=== PATIENT | female | born 1955 | race Caucasian/White ===

== ENCOUNTER → 2016-10-01 | Outpatient (CLI) | payer BC ==
[2016-10-01 09:08] LABS: Potassium 4.7 mmol/L (3.5-5.1)
== END | disposition home or self-care (01) ==
LOC: LABWHC1 08:21
PROVIDERS: ATTEND Internal Medicine
DX: E11.9 Type 2 diabetes mellitus without complications (principal); I10 Essential (primary) hypertension
CPT/HCPCS: 36415; 80051; 82565; 83036; 84520

== ENCOUNTER → 2016-10-17 | Outpatient (CLI) | payer BC ==
[2016-10-17 08:35] LABS: Basophils % (A) 1 %; CH 31.5; CHCM 32.3; Eosinophils # (A) 0.1 k/uL (0-0.7); Eosinophils % (A) 3 %; HCT 38.8 % (34.0-46.0); HDW 2.47; HGB 12.7 gm/dL (11.4-16.0); Luc # (Auto) 0.07; Luc % (Auto) 2; Lymphocytes # (A) 1.3 k/uL (1.0-4.8); Lymphocytes % (A) 30 %; MCH 31.9 pg (25.0-35.0); MCHC 32.6 g/dL (31.0-37.0); Mean Platelet Volume 7.3; Monocytes # (A) 0.3 k/uL (0-1.0); Monocytes % (A) 6 %; Neutrophils # (A) 2.6 k/uL (1.3-7.7); Neutrophils % (A) 59 %; RBC 3.96 m/uL (3.80-5.40); RDW 12.4 % (11.5-15.5); WBC 4.4 k/uL (3.8-10.6); WBC (Perox) 4.68
[2016-10-17 10:53] LABS: Magnesium 1.9 mg/dL (1.6-2.3); Phosphorous 3.6 mg/dL (2.5-4.5); Potassium 5.1 mmol/L (3.5-5.1)
== END ==
LOC: LABWHC1 07:42
PROVIDERS: ATTEND Nurse Practitioner Family
DX: N18.3 Chronic kidney disease, stage 3 (moderate) (principal); D50.9 Iron deficiency anemia, unspecified; D64.9 Anemia, unspecified; E55.9 Vitamin D deficiency, unspecified; E21.3 Hyperparathyroidism, unspecified; M10.9 Gout, unspecified; N39.0 Urinary tract infection, site not specified
CPT/HCPCS: 36415; 80048; 82306; 82728; 83540; 83550; 83735; 83970; 84100; 84550; 85025

== ENCOUNTER → 2016-12-31 | Outpatient (CLI) | payer BC ==
[2016-12-31 09:31] LABS: Calcium 9.9 mg/dL (8.4-10.2); Potassium 4.7 mmol/L (3.5-5.1)
== END | disposition home or self-care (01) ==
LOC: LABWHC1 07:58
PROVIDERS: ATTEND Nurse Practitioner Family
DX: N18.3 Chronic kidney disease, stage 3 (moderate) (principal)
CPT/HCPCS: 36415; 80048

== ENCOUNTER → 2017-03-25 | Outpatient (CLI) | payer BC ==
[2017-03-25 07:58] LABS: Basophils # (A) 0.1 k/uL (0-0.2); Basophils % (A) 1 %; CH 31.8; Eosinophils # (A) 0.3 k/uL (0-0.7); Eosinophils % (A) 6 %; HCT 39.6 % (34.0-46.0); HDW 2.53; HGB 13.5 gm/dL (11.4-16.0); Luc # (Auto) 0.07; Luc % (Auto) 1; Lymphocytes # (A) 1.6 k/uL (1.0-4.8); Lymphocytes % (A) 29 %; MCH 32.8 pg (25.0-35.0); MCV 96.6 fL (80.0-100.0); Mean Platelet Volume 8.2; Monocytes # (A) 0.3 k/uL (0-1.0); Monocytes % (A) 5 %; Neutrophils # (A) 3.2 k/uL (1.3-7.7); Neutrophils % (A) 58 %; RDW 12.8 % (11.5-15.5); WBC 5.5 k/uL (3.8-10.6); WBC (Perox) 5.56
[2017-03-25 07:59] LABS: Appearance,Urine Clear (Clear); Bilirubin,Urine Negative (Negative); Glucose,Urine (UA) Negative (Negative); Ketones,Urine Negative (Negative); Leukocyte Esterase,Urine Small (Negative); Nitrite,Urine Negative (Negative); Particle Count 497; Protein,Urine Negative (Negative); Specific Gravity,Urine 1.003 (1.001-1.035); UA Billing (MACRO vs. MICRO) MICRO; Urobilinogen,Urine <2.0 mg/dL (<2.0); WBC,Urine 1 /hpf (0-5)
[2017-03-25 11:23] LABS: Calcium 9.9 mg/dL (8.4-10.2); Magnesium 1.7 mg/dL (1.6-2.3); Phosphorous 4.1 mg/dL (2.5-4.5); Potassium 4.5 mmol/L (3.5-5.1); Uric Acid 5.5 mg/dL (3.7-7.4)
[2017-03-25 11:50] LABS: Iron Saturation 35.45 (12.00-45.00)
== END | disposition home or self-care (01) ==
LOC: LABWHC1 06:54
PROVIDERS: ATTEND Nurse Practitioner Family
DX: N18.3 Chronic kidney disease, stage 3 (moderate) (principal); D50.9 Iron deficiency anemia, unspecified; E55.9 Vitamin D deficiency, unspecified; E21.3 Hyperparathyroidism, unspecified; M10.9 Gout, unspecified; N39.0 Urinary tract infection, site not specified
CPT/HCPCS: 36415; 80048; 81001; 82306; 82728; 83540; 83550; 83735; 83970; 84100; 84550; 85025

== ENCOUNTER → 2017-08-06 | Outpatient (CLI) | payer BC ==
[2017-08-06 13:42] LABS: Basophils # (A) 0.1 k/uL (0-0.2); Basophils % (A) 1 %; Eosinophils # (A) 0.2 k/uL (0-0.7); Eosinophils % (A) 4 %; HCT 40.1 % (34.0-46.0); HGB 12.6 gm/dL (11.4-16.0); Lymphocytes # (A) 1.9 k/uL (1.0-4.8); Lymphocytes % (A) 28 %; MCH 31.1 pg (25.0-35.0); MCHC 31.5 g/dL (31.0-37.0); MCV 98.8 fL (80.0-100.0); Mean Platelet Volume 7.5; Monocytes # (A) 0.4 k/uL (0-1.0); Monocytes % (A) 6 %; Neutrophils % (A) 60 %; Platelet Count 196 k/uL (150-450); RBC 4.06 m/uL (3.80-5.40); RDW 12.6 % (11.5-15.5); WBC 6.7 k/uL (3.8-10.6)
[2017-08-06 13:55] LABS: Appearance,Urine Clear (Clear); Bacteria,Urine Rare /hpf; Bilirubin,Urine Negative (Negative); Blood,Urine Negative (Negative); Color,Urine Light Yellow; Glucose,Urine (UA) Negative (Negative); Hyaline Casts,Urine 1 /lpf (0-2); Ketones,Urine Negative (Negative); Leukocyte Esterase,Urine Large (Negative); Mucus,Urine Rare /hpf; Nitrite,Urine Negative (Negative); PH, Urine 5.5 (5.0-8.0); Protein,Urine Negative (Negative); RBC,Urine <1 /hpf (0-5); Specific Gravity,Urine 1.009 (1.001-1.035); Squamous Epithelial Cell,Urine 2 /hpf (0-4); Urobilinogen,Urine <2.0 mg/dL (<2.0); WBC,Urine 6 /hpf (0-5)
[2017-08-06 13:59] LABS: Calcium 9.8 mg/dL (8.4-10.2); Magnesium 1.7 mg/dL (1.6-2.3); Phosphorus 4.7 mg/dL (2.5-4.5); Potassium 5.1 mmol/L (3.5-5.1); Uric Acid 5.9 mg/dL (3.7-7.4)
[2017-08-06 19:09] LABS: Iron Saturation 24.73 (12.00-45.00)
[2017-08-06 19:19] LABS: Vitamin D 25 Hydroxy 20.2 ng/mL (30.0-100.0)
== END | disposition home or self-care (01) ==
LOC: LABWHC1 12:49
PROVIDERS: ATTEND Nurse Practitioner Family
DX: N39.0 Urinary tract infection, site not specified (principal); M10.9 Gout, unspecified; N25.81 Secondary hyperparathyroidism of renal origin; D50.9 Iron deficiency anemia, unspecified; N18.3 Chronic kidney disease, stage 3 (moderate)
CPT/HCPCS: 36415; 80048; 81001; 82306; 82728; 83540; 83550; 83735; 83970; 84100; 84550; 85025; 87086

== ENCOUNTER → 2017-09-04 | Outpatient (CLI) | payer BC | END | disposition home or self-care (01) | LOC: LABWHC1 08:43 | PROVIDERS: ATTEND Psychiatry & Neurology Psychiatry | DX: E55.9 Vitamin D deficiency, unspecified (principal) | CPT/HCPCS: 36415; 80175; 82306 ==

== ENCOUNTER → 2017-11-19 | Outpatient (CLI) | payer BC ==
[2017-11-19 08:07] LABS: Calcium 9.7 mg/dL (8.4-10.2); Potassium 4.9 mmol/L (3.5-5.1)
== END | disposition home or self-care (01) ==
LOC: LABWHC1 07:22
PROVIDERS: ATTEND Nurse Practitioner Family
DX: N18.3 Chronic kidney disease, stage 3 (moderate) (principal)
CPT/HCPCS: 36415; 80048

== ENCOUNTER → 2017-12-19 | Outpatient (CLI) | payer BC ==
[2017-12-19 09:46] LABS: HCT 41.3 % (34.0-46.0); HGB 13.3 gm/dL (11.4-16.0); MCH 31.1 pg (25.0-35.0); MCHC 32.2 g/dL (31.0-37.0); MCV 96.5 fL (80.0-100.0); Mean Platelet Volume 6.8; Platelet Count 165 k/uL (150-450); RBC 4.28 m/uL (3.80-5.40); RDW 13.3 % (11.5-15.5)
[2017-12-19 10:00] LABS: Albumin 4.4 g/dL (3.5-5.0); Calcium 9.7 mg/dL (8.4-10.2); Potassium 4.7 mmol/L (3.5-5.1); Total Bilirubin 0.6 mg/dL (0.2-1.3); Total Protein 6.6 g/dL (6.3-8.2)
== END | disposition home or self-care (01) ==
LOC: LABWHC1 09:06
PROVIDERS: ATTEND Psychiatry & Neurology Psychiatry
DX: I10 Essential (primary) hypertension (principal); E55.9 Vitamin D deficiency, unspecified; Z79.899 Other long term (current) drug therapy
CPT/HCPCS: 36415; 80053; 80061; 82306; 84443; 85027

== ENCOUNTER → 2018-08-06 | Outpatient (CLI) | payer MEDICARE ==
[2018-08-06 10:31] LABS: HCT 42.8 % (34.0-46.0); MCH 30.4 pg (25.0-35.0); MCHC 30.5 g/dL (31.0-37.0); MCV 99.7 fL (80.0-100.0); Mean Platelet Volume 6.7; Platelet Count 244 k/uL (150-450); RBC 4.29 m/uL (3.80-5.40); RDW 13.1 % (11.5-15.5); WBC 8.1 k/uL (3.8-10.6)
[2018-08-06 15:57] LABS: Albumin 4.3 g/dL (3.80-4.90); Albumin/Globulin Ratio 2.39 (1.20-2.10); Anion Gap 9.3 mmol/L (4.00-12.00); Calcium 9.4 mg/dL (8.7-10.3); Carbon Dioxide 22.7 mmol/L (21.6-31.8); Globulin 1.8 g/dL (1.6-3.3); Potassium 5.1 mmol/L (3.5-5.5); Total Bilirubin 0.4 mg/dL (0.2-1.2); Total Protein 6.1 g/dL (6.2-8.2)
[2018-08-06 16:03] LABS: T4, Free (Free Thyroxine) 1.1 ng/dL (0.80-1.80)
== END | disposition home or self-care (01) ==
LOC: LABWHC1 09:48
PROVIDERS: ATTEND Psychiatry & Neurology Psychiatry
DX: E55.9 Vitamin D deficiency, unspecified (principal); E03.9 Hypothyroidism, unspecified; E78.5 Hyperlipidemia, unspecified; Z79.899 Other long term (current) drug therapy
CPT/HCPCS: 36415; 80053; 84439; 84443; 85027

== ENCOUNTER → 2018-08-07 | Outpatient (CLI) | payer MEDICARE ==
[2018-08-07 11:53] LABS: LDL Cholesterol,Calculated 107.2 mg/dL (0.0-131.0); VLDL Calculation 18.8 mg/dL (5.00-40.00)
== END | disposition home or self-care (01) ==
LOC: LABWHC1 07:43
PROVIDERS: ATTEND Psychiatry & Neurology Psychiatry
DX: E55.9 Vitamin D deficiency, unspecified (principal); E03.9 Hypothyroidism, unspecified; E78.5 Hyperlipidemia, unspecified; Z79.899 Other long term (current) drug therapy
CPT/HCPCS: 36415; 80061

== ENCOUNTER → 2019-01-02 | Outpatient (CLI) | payer MEDICARE ==
--- NOTE | 2019-01-05 10:49 | MM ---
Reason for exam: screening (asymptomatic). Last mammogram was performed 2 years and 8 months ago. History: Patient is postmenopausal. Benign stereotactic core biopsy of the left breast, October 06, 2001. Benign excisional biopsy of the left breast. Physical Findings: A clinical breast exam by your physician is recommended on an annual basis and results should be correlated with mammographic findings. MG Screening Mammo w CAD Bilateral CC and MLO view(s) were taken. Prior study comparison: May 17, 2016, bilateral MG screening mammo w CAD. May 03, 2015, bilateral MG screening mammo w CAD. There are scattered fibroglandular densities. Benign appearing bilateral calcifications. Previous mammotome biopsy in the left breast. No significant changes when compared with prior studies. ASSESSMENT: Benign, BI-RAD 2 RECOMMENDATION: Routine screening mammogram of both breasts in 1 year.
== END | disposition home or self-care (01) ==
LOC: RADMAMWWP 07:00
PROVIDERS: ATTEND Family Medicine
DX: Z12.31 Encounter for screening mammogram for malignant neoplasm of breast (principal)
CPT/HCPCS: 77067

== ENCOUNTER → 2019-04-13 | Outpatient (CLI) | payer MEDICARE | END | disposition home or self-care (01) | LOC: LABWHC1 06:37 | PROVIDERS: ATTEND Psychiatry & Neurology Psychiatry | DX: E21.3 Hyperparathyroidism, unspecified (principal) | CPT/HCPCS: 36415; 82310; 83970 ==

== ENCOUNTER 2019-11-23 09:37 | Inpatient (IN) | payer MEDICARE ==
[2019-11-23] MEDS ORDERED: SODIUM CHLORIDE 0.9% 2,000 ML IV STA (10:12)
[2019-11-23] MEDS ORDERED: ONDANSETRON ODT 8 MG TAB.RAPDIS PO STA (10:12)
--- NOTE | 2019-11-23 10:22 | ED ---
General Adult HPI - General Chief complaint: Arrhythmia/Palpitations Stated complaint: racing heart Time Seen by Provider: 11/23/19 09:45 Source: patient, RN notes reviewed, old records reviewed Mode of arrival: ambulatory Limitations: no limitations - History of Present Illness Initial comments: This is a 64-year-old female who presents emergency Department complaining of nausea and vomiting is for 2 weeks. Patient states she doesn't vomit every day but she is nauseous all day. Patient states she's been unable to eat but she has been able to keep some fluids down. Patient states she's also had a little bit of diarrhea. Patient states her has the same thing. Patient states she has not taken her temperature. She has felt warm. Patient denies any chest pain difficulty breathing shortness of breath per patient denies any cough. Alvarado silverman states her abdomen is sore but there is no specific spot of pain per patient denies any lightheadedness or dizziness. Patient denies any headache patient denies numbness weakness. - Related Data Home Medications Medication Instructions Recorded Confirmed Cholecalciferol [Vitamin D3 (25 5,000 unit PO DAILY 11/23/19 11/23/19 Mcg = 1000 Iu)] Famotidine 40 mg PO BID 11/23/19 11/23/19 Ferrous Sulfate [Feosol] 325 mg PO DAILY 11/23/19 11/23/19 Haloperidol [Haldol] 1 mg PO DAILY 11/23/19 11/23/19 Omeprazole [PriLOSEC] 40 mg PO DAILY 11/23/19 11/23/19 amLODIPine [Norvasc] 2.5 mg PO DAILY 11/23/19 11/23/19 lamoTRIgine [LaMICtal] 200 mg PO DAILY 11/23/19 11/23/19 Allergies Allergy/AdvReac Type Severity Reaction Status Date / Time No Known Allergies Allergy Verified 11/23/19 11:54 Review of Systems ROS Statement: Those systems with pertinent positive or pertinent negative responses have been documented in the HPI. ROS Other: All systems not noted in ROS Statement are negative. Past Medical History Past Medical History: No Reported History History of Any Multi-Drug Resistant Organisms: None Reported Past Surgical History: Section Past Psychological History: Bipolar Smoking Status: Never smoker Past Alcohol Use History: None Reported Past Drug Use History: None Reported General Exam - General Exam Comments Initial Comments: GENERAL: Patient is well-developed and well-nourished. Patient is nontoxic and well- hydrated and is in mild distress. ENT: Neck is soft and supple. No significant lymphadenopathy is noted. Oropharynx is clear. Dry mucous membranes. Neck has full range of motion without eliciting any pain. EYES: The sclera were anicteric and conjunctiva were pink and moist. Extraocular movements were intact and pupils were equal round and reactive to light. Eyelids were unremarkable. PULMONARY: Unlabored respirations. Good breath sounds bilaterally. No audible rales rhonchi or wheezing was noted. CARDIOVASCULAR: Patient is tachycardic at 130 beats a minute patient also has an occasional extrasystole ABDOMEN: Soft and nontender with normal bowel sounds. SKIN: Skin is clear with no lesions or rashes and otherwise unremarkable. NEUROLOGIC: Patient is alert and oriented x3. Cranial nerves II through XII are grossly intact. Motor and sensory are also intact. Normal speech, volume and content. Symmetrical smile. MUSCULOSKELETAL: Normal extremities with adequate strength and full range of motion. LYMPHATICS: No significant lymphadenopathy is noted PSYCHIATRIC: Normal psychiatric evaluation. Limitations: no limitations Course Vital Signs 11/23/19 11/23/19 11/23/19 09:42 09:53 10:00 Temperature 99.6 F Pulse Rate 156 H 129 H Respiratory 17 16 Rate Blood Pressure 119/91 O2 Sat by Pulse 96 94 L 92 L Oximetry 11/23/19 11/23/19 11/23/19 10:30 10:44 11:00 Temperature Pulse Rate 130 H 126 H 120 H Respiratory 17 18 20 Rate Blood Pressure 128/90 120/90 128/90 O2 Sat by Pulse 94 L 93 L 98 Oximetry 11/23/19 11/23/19 11/23/19 11:30 12:21 12:33 Temperature Pulse Rate 116 H 120 H 111 H Respiratory 18 18 Rate Blood Pressure 153/109 140/103 O2 Sat by Pulse 97 Oximetry 11/23/19 11/23/19 13:08 13:39 Temperature 99.9 F H Pulse Rate 108 H 111 H Respiratory 16 18 Rate Blood Pressure 150/107 133/108 O2 Sat by Pulse 97 98 Oximetry Medical Decision Making - Medical Decision Making EKG shows sinus tachycardia with occasional PVC at 143 bpm NV interval is on a 46 dresses 80 QT interval 274 QTC is 422 per patient's EKG shows no ST segment elevation or depression. Patient received 1 g of Rocephin. Patient received 2 L of fluid in the emergency department was still tachycardic and remained mildly nauseated. So I spoke with Dr. Peck he agreed to admit the patient admitted the patient wrote admitting orders - Lab Data Result diagrams: 11/23/19 10:00 11/23/19 10:00 Lab Results 11/23/19 11/23/19 11/23/19 Range/Units 10:00 10:00 10:00 WBC 15.8 H (3.8-10.6) k/uL RBC 4.32 (3.80-5.40) m/uL Hgb 12.2 (11.4-16.0) gm/dL Hct 40.1 (34.0-46.0) % MCV 92.8 (80.0-100.0) fL MCH 28.3 (25.0-35.0) pg MCHC 30.5 L (31.0-37.0) g/dL RDW 14.1 (11.5-15.5) % Plt Count 324 (150-450) k/uL Neutrophils % 91 % Lymphocytes % 3 % Monocytes % 4 % Eosinophils % 1 % Basophils % 1 % Neutrophils # 14.4 H (1.3-7.7) k/uL Lymphocytes # 0.5 L (1.0-4.8) k/uL Monocytes # 0.6 (0-1.0) k/uL Eosinophils # 0.1 (0-0.7) k/uL Basophils # 0.1 (0-0.2) k/uL Hypochromasia Slight Sodium 141 (137-145) mmol/L Potassium 5.1 (3.5-5.1) mmol/L Chloride 107 (98-107) mmol/L Carbon Dioxide 21 L (22-30) mmol/L Anion Gap 13 mmol/L BUN 33 H (7-17) mg/dL Creatinine 1.55 H (0.52-1.04) mg/dL Est GFR (CKD-EPI)AfAm 40 (>60 ml/min/1.73 sqM) Est GFR (CKD-EPI)NonAf 35 (>60 ml/min/1.73 sqM) Glucose 149 H (74-99) mg/dL Plasma Lactic Acid [place] (0.7-2.0) mmol/L Calcium 9.1 (8.4-10.2) mg/dL Total Bilirubin 0.7 (0.2-1.3) mg/dL AST 57 H (14-36) U/L ALT 21 (4-34) U/L Alkaline Phosphatase 94 (38-126) U/L Troponin I 0.014 (0.000-0.034) ng/mL Total Protein 6.9 (6.3-8.2) g/dL Albumin 3.4 L (3.5-5.0) g/dL Amylase 65 (30-110) U/L Lipase 135 (23-300) U/L Urine Color Urine Appearance (Clear) Urine pH (5.0-8.0) Ur Specific [place] (1.001-1.035) Urine Protein (Negative) Urine Glucose (UA) (Negative) Urine Ketones (Negative) Urine Blood (Negative) Urine Nitrite (Negative) Urine Bilirubin (Negative) Urine Urobilinogen (<2.0) mg/dL Ur Leukocyte Esterase (Negative) Urine RBC (0-5) /hpf Urine WBC (0-5) /hpf Ur Squamous Epith Cells (0-4) /hpf Urine Bacteria (None) /hpf Urine Mucus (None) /hpf 11/23/19 11/23/19 Range/Units 10:37 11:20 WBC (3.8-10.6) k/uL RBC (3.80-5.40) m/uL Hgb (11.4-16.0) gm/dL Hct (34.0-46.0) % MCV (80.0-100.0) fL MCH (25.0-35.0) pg MCHC (31.0-37.0) g/dL RDW (11.5-15.5) % Plt Count (150-450) k/uL Neutrophils % % Lymphocytes % % Monocytes % % Eosinophils % % Basophils % % Neutrophils # (1.3-7.7) k/uL Lymphocytes # (1.0-4.8) k/uL Monocytes # (0-1.0) k/uL Eosinophils # (0-0.7) k/uL Basophils # (0-0.2) k/uL Hypochromasia Sodium (137-145) mmol/L Potassium (3.5-5.1) mmol/L Chloride (98-107) mmol/L Carbon Dioxide (22-30) mmol/L Anion Gap mmol/L BUN (7-17) mg/dL Creatinine (0.52-1.04) mg/dL Est GFR (CKD-EPI)AfAm (>60 ml/min/1.73 sqM) Est GFR (CKD-EPI)NonAf (>60 ml/min/1.73 sqM) Glucose (74-99) mg/dL Plasma Lactic Acid [place] 1.1 (0.7-2.0) mmol/L Calcium (8.4-10.2) mg/dL Total Bilirubin (0.2-1.3) mg/dL AST (14-36) U/L ALT (4-34) U/L Alkaline Phosphatase (38-126) U/L Troponin I (0.000-0.034) ng/mL Total Protein (6.3-8.2) g/dL Albumin (3.5-5.0) g/dL Amylase (30-110) U/L Lipase (23-300) U/L Urine Color Yellow Urine Appearance Cloudy H (Clear) Urine pH 5.5 (5.0-8.0) Ur Specific [place] 1.011 (1.001-1.035) Urine Protein 1+ H (Negative) Urine Glucose (UA) Negative (Negative) Urine Ketones Negative (Negative) Urine Blood Negative (Negative) Urine Nitrite Negative (Negative) Urine Bilirubin Negative (Negative) Urine Urobilinogen <2.0 (<2.0) mg/dL Ur Leukocyte Esterase Moderate H (Negative) Urine RBC 2 (0-5) /hpf Urine WBC 20 H (0-5) /hpf Ur Squamous Epith Cells 23 H (0-4) /hpf Urine Bacteria Many H (None) /hpf Urine Mucus Rare H (None) /hpf Disposition Clinical Impression: Urinary tract infection, Tachycardia, Dehydration, Vomiting Disposition: ADMITTED IP TO THIS [facility] Referrals: Reuben Chino MD [Primary Care Provider] - 1-2 days Time of Disposition: 14:20
[2019-11-23] MEDS ORDERED: ONDANSETRON 4 MG/2 ML VIAL IVP STA (10:39)
[2019-11-23 10:40] LABS: Basophils # (A) 0.1 k/uL (0-0.2); Basophils % (A) 1 %; Eosinophils # (A) 0.1 k/uL (0-0.7); Eosinophils % (A) 1 %; HCT 40.1 % (34.0-46.0); HGB 12.2 gm/dL (11.4-16.0); Hypochromasia Slight; Lymphocytes # (A) 0.5 k/uL (1.0-4.8); Lymphocytes % (A) 3 %; MCH 28.3 pg (25.0-35.0); MCHC 30.5 g/dL (31.0-37.0); MCV 92.8 fL (80.0-100.0); Mean Platelet Volume 7.5; Monocytes # (A) 0.6 k/uL (0-1.0); Monocytes % (A) 4 %; Neutrophils # (A) 14.4 k/uL (1.3-7.7); Neutrophils % (A) 91 %; Platelet Count 324 k/uL (150-450); RBC 4.32 m/uL (3.80-5.40); RDW 14.1 % (11.5-15.5); WBC 15.8 k/uL (3.8-10.6)
[2019-11-23 11:08] LABS: Albumin 3.4 g/dL (3.5-5.0); Calcium 9.1 mg/dL (8.4-10.2); Total Bilirubin 0.7 mg/dL (0.2-1.3); Total Protein 6.9 g/dL (6.3-8.2)
[2019-11-23 11:12] LABS: Potassium 5.1 mmol/L (3.5-5.1)
--- NOTE | 2019-11-23 11:13 | XR ---
EXAMINATION TYPE: XR chest 2V DATE OF EXAM: 11/23/2019 COMPARISON: NONE HISTORY: Tachycardia, vomiting, shortness of breath, and fever. TECHNIQUE: Frontal and lateral views of the chest are obtained. FINDINGS: Low lung volumes are present. Overlying EKG leads are seen. There is no focal air space opa city, pleural effusion, or pneumothorax seen. The cardiac silhouette size is within normal limits wi th atherosclerotic change aortic knob. The osseous structures are intact. IMPRESSION: Low lung volumes without suspicious acute process.
[2019-11-23 11:47] LABS: Appearance,Urine Cloudy (Clear); Bacteria,Urine Many /hpf; Bilirubin,Urine Negative (Negative); Blood,Urine Negative (Negative); Color,Urine Yellow; Glucose,Urine (UA) Negative (Negative); Ketones,Urine Negative (Negative); Leukocyte Esterase,Urine Moderate (Negative); Mucus,Urine Rare /hpf; Nitrite,Urine Negative (Negative); PH, Urine 5.5 (5.0-8.0); Protein,Urine 1+ (Negative); RBC,Urine 2 /hpf (0-5); Specific Gravity,Urine 1.011 (1.001-1.035); Squamous Epithelial Cell,Urine 23 /hpf (0-4); Urobilinogen,Urine <2.0 mg/dL (<2.0); WBC,Urine 20 /hpf (0-5)
[2019-11-23] MEDS ORDERED: lamoTRIgine 100 MG TAB PO STA (12:01)
[2019-11-23] MEDS ORDERED: amLODIPine 5 MG TAB PO STA (12:01)
[2019-11-23] MEDS ORDERED: cefTRIAXone IN SWFI 1,000 MG/10 ML SYRINGE IVP STA (12:39)
[2019-11-23] MEDS ORDERED: hydrALAZINE HCL 20 MG/ML 1 ML VIAL IVP STA (13:45)
[2019-11-23] MEDS ORDERED: ACETAMINOPHEN TAB 325 MG TAB PO STA (13:45)
[2019-11-23] MEDS ORDERED: SODIUM CHLORIDE 0.9% 1,000 ML IV ONE (14:28)
--- NOTE | 2019-11-23 16:50 | P.HPIM ---
History of Present Illness H&P Date: 11/23/19 Chief Complaint: Nausea vomiting diarrhea History of presenting complaint: This is a pleasant 64-year-old patient of Dr. Reuben Chino. Chronic stable medical conditions include bipolar, hypertension, GERD. Patient's present to the ER with 2 weeks of nausea vomiting not able to keep anything down some diarrhea abdominal pain. Denies any fever and chills. Tired rundown. Patient appears to be rather distant during the history giving. Not been able to eat much. ER physician related at all from time she says she is fine though she'll often have other contradictory complaints. She was able to eat only a very small amount in the ER the last if she ate she said yes. Review of systems: GEN.: Weak tired EYES: None HEENT: None NECK: None RESPIRATORY: None CARDIOVASCULAR: None GASTROINTESTINAL: As above GENITOURINARY: None MUSCULOSKELETAL: None LYMPHATICS: None HEMATOLOGICAL: None PSYCHIATRY: Appears depressed NEUROLOGICAL: None Past medical history to include: Bipolar, hypertension, GERD, Social history: Denies smoking or alcohol. Lives the hospital. Family history: Reviewed, noncontributory to presentation Physical examination: VITAL SIGNS: 99.6, 156, 17, 119/91, 96% on room air GENERAL: BMI 35.3, laying in bed, tired appearing flat affect. EYES: Pupils equal. Conjunctiva normal. HEENT: External appearance of nose and ears normal, oral cavity-dry. NECK: JVD not raised; masses not palpable. HEART: First and second heart sounds are normal; no edema. LUNGS: Respiratory rate normal; clear to auscultation. ABDOMEN: Soft, mild tenderness, liver spleen not palpable, no masses palpable. PSYCH: Does answer questions but has a rather distant affectl. NEUROLOGICAL: Cranial nerves grossly intact; no facial asymmetry, power and sensation grossly intact. LYMPHATICS: No lymph nodes palpable in the axilla and neck INVESTIGATIONS, reviewed in the clinical context: White count 13.8 hemoglobin 12.2 platelets 324 potassium 5.1 bun 33 creatinine 1.55 UA positive for leukoesterase, squamous epithelial cells-23 EKG tracing personally reviewed by me-sinus rhythm with VC Chest x-ray film personally reviewed by me-no obvious infiltrate, some elevation of the right diaphragm Assessment: -Patient presents with over 10 days of nausea vomiting abdominal pain some loose stools. Had only one loose stool today. Appears to be acute gastroenteritis. Given the duration of symptoms will empirically treat with oral antibiotics. -Bipolar disorder patient clinically does appear to be elevated down and depressed -Essential hypertension -GERD Plan: Patient's stool will be sent off for ova and parasites. We'll start the patient on Flagyl 5 mg 3 times a day and ciprofloxacin 500 mg twice a day. Patient be placed on a liquid diet. Lovenox for DVT prophylaxis. Care was discussed with the patient. Psychiatry will be consulted. Past Medical History Past Medical History: No Reported History History of Any Multi-Drug Resistant Organisms: None Reported Past Surgical History: Section Past Psychological History: Bipolar Smoking Status: Never smoker Past Alcohol Use History: None Reported Past Drug Use History: None Reported Medications and Allergies Home Medications Medication Instructions Recorded Confirmed Type Cholecalciferol [Vitamin D3 (25 5,000 unit PO DAILY 11/23/19 11/23/19 History Mcg = 1000 Iu)] Famotidine 40 mg PO BID 11/23/19 11/23/19 History Ferrous Sulfate [Feosol] 325 mg PO DAILY 11/23/19 11/23/19 History Haloperidol [Haldol] 1 mg PO DAILY 11/23/19 11/23/19 History Omeprazole [PriLOSEC] 40 mg PO DAILY 11/23/19 11/23/19 History amLODIPine [Norvasc] 2.5 mg PO DAILY 11/23/19 11/23/19 History lamoTRIgine [LaMICtal] 200 mg PO DAILY 11/23/19 11/23/19 History Allergies Allergy/AdvReac Type Severity Reaction Status Date / Time No Known Allergies Allergy Verified 11/23/19 11:54 Physical Exam Vitals: Vital Signs Temp Pulse Resp BP Pulse Ox 11/23/19 16:20 106 H 18 115/77 100 11/23/19 15:40 112 H 18 130/90 98 11/23/19 14:14 120 H 18 138/75 98 11/23/19 13:39 99.9 F H 111 H 18 133/108 98 11/23/19 13:08 108 H 16 150/107 97 11/23/19 12:33 111 H 11/23/19 12:21 120 H 18 140/103 11/23/19 11:30 116 H 18 153/109 97 11/23/19 11:00 120 H 20 128/90 98 11/23/19 10:44 126 H 18 120/90 93 L 11/23/19 10:30 130 H 17 128/90 94 L 11/23/19 10:00 129 H 16 119/91 92 L 11/23/19 09:53 17 94 L 11/23/19 09:42 99.6 F 156 H 96 Intake and Output 11/23/19 11/23/19 11/23/19 06:59 14:59 22:59 Other: Weight 96.162 kg Results CBC & Chem 7: 11/23/19 10:00 11/23/19 10:00 Labs: Abnormal Lab Results - Last 24 Hours (Table) 11/23/19 11/23/19 11/23/19 Range/Units 10:00 10:00 11:20 WBC 15.8 H (3.8-10.6) k/uL MCHC 30.5 L (31.0-37.0) g/dL Neutrophils # 14.4 H (1.3-7.7) k/uL Lymphocytes # 0.5 L (1.0-4.8) k/uL Carbon Dioxide 21 L (22-30) mmol/L BUN 33 H (7-17) mg/dL Creatinine 1.55 H (0.52-1.04) mg/dL Glucose 149 H (74-99) mg/dL AST 57 H (14-36) U/L Albumin 3.4 L (3.5-5.0) g/dL Urine Appearance Cloudy H (Clear) Urine Protein 1+ H (Negative) Ur Leukocyte Esterase Moderate H (Negative) Urine WBC 20 H (0-5) /hpf Ur Squamous Epith Cells 23 H (0-4) /hpf Urine Bacteria Many H (None) /hpf Urine Mucus Rare H (None) /hpf Microbiology - Last 24 Hours (Table) 11/23/19 11:20 Urine Culture - Preliminary Urine,Voided
[2019-11-23] MEDS ORDERED: LEVOFLOXACIN 500 MG TAB PO SCH (17:00)
[2019-11-23] MEDS: metroNIDAZOLE 500 MG TAB PO SCH ×2 (17:25→20:43)
[2019-11-23] MEDS: LACTATED RINGERS 1,000 ML IV SCH (17:25)
[2019-11-23] MEDS: FAMOTIDINE 20 MG TAB PO SCH (20:43)
[2019-11-23] MEDS: HALOPERIDOL 1 MG TAB PO SCH (20:43)
[2019-11-24] MEDS: LACTATED RINGERS 1,000 ML IV SCH ×5 (01:14→20:33)
[2019-11-24 07:35] LABS: HCT 34.8 % (34.0-46.0); HGB 10.5 gm/dL (11.4-16.0); Hypochromasia Moderate; MCH 28.4 pg (25.0-35.0); MCHC 30.1 g/dL (31.0-37.0); MCV 94.4 fL (80.0-100.0); Mean Platelet Volume 7.2; Platelet Count 234 k/uL (150-450); RBC 3.69 m/uL (3.80-5.40); RDW 14.2 % (11.5-15.5); WBC 10.8 k/uL (3.8-10.6)
[2019-11-24] MEDS: lamoTRIgine 100 MG TAB PO SCH (07:52)
[2019-11-24] MEDS: PANTOPRAZOLE 40 MG TABLET PO SCH (07:52)
[2019-11-24] MEDS: metroNIDAZOLE 500 MG TAB PO SCH ×3 (07:52→20:33)
[2019-11-24] MEDS: amLODIPine 2.5 MG TAB PO SCH (07:52)
[2019-11-24 07:57] LABS: Calcium 8.5 mg/dL (8.4-10.2)
[2019-11-24 12:57] VITALS: BMI 35.2
--- NOTE | 2019-11-24 14:19 | P.CN ---
Psychiatric Consult - . Consult date: 11/24/19 Consult:: IDENTIFYING DATA: The patient is a 64-year-old female admitted to medicine service for the evaluation and treatment of nausea, vomiting, diarrhea and abdominal pain. The hospitalist submitted a psychiatry consult because she has history of a bipolar illness. HISTORY OF PRESENT ILLNESS: I reviewed the medical record and interviewed the patient. She stated she came the hospital because she was having difficulty "holding food down." She alleged that prior prior to admission she was only drinking fluids and "occasional" solid food. She stated she's been meeting with Dr. Zaragoza is an outpatient "for many years" and he has been prescribing her current psychotropic medications, Lamictal and Haldol, again "for many years". She denied current psychiatric problems or concerns. Specifically, she denied feeling depressed or having thoughts of or suicide. She denied experiencing persistent uncontrolled anxiety. She denied obsessions or compulsions. She denied use of alcohol or drugs including marijuana. She denied experiencing such psychotic symptoms as auditory, visual or olfactory hallucinations, ideas reference, thought insertion, thought broadcasting or thought control. I was unable to reach Dr. Zaragoza to review his treatment and treatment history. PAST PSYCHIATRIC HISTORY: She is vague about her history but admitted to 2 admissions to [facility] "over 20 years ago. She is unaware of her psychiatric diagnosis and became upset when I talked about her having a psychiatric illness. PAST MEDICAL HISTORY: See admission history and physical. ALLERGIES: NO KNOWN DRUG ALLERGIES. SUBSTANCE USE HISTORY: Denied. FAMILY PSYCHIATRIC/SUBSTANCE USE HISTORY: Denied. SOCIAL HISTORY: She lives happily with her of 50 years. They have 4 grown children and 15 grandchildren. He is retired. She never worked outside the household. MENTAL STATUS EXAM: She presented as a pale appearing moderately obese 64-year-old female who is laying In bed. She made eye contact and appeared to attend to the interview. Other than her pill complexion she had no distinguishing features or prominent physical abnormalities. She had a blunted facial expression. She was alert and oriented to person, place and time. She showed no psychomotor retardation and corneal for movements of the mouth. Her speech was spontaneous, blunted with decreased volume. Her affect was blunted but stable and appropriate. She denied suicidal ideation, wishes or homicidal ideation. She denied feeling hopeless, helpless or worthless. She did not express ideas reference, paranoid ideation, magical ideation or delusions. Her thinking was concrete but her associations were coherent, logical and goal directed. She showed poverty of speech and poverty of content of speech. She denied hallucinations and did not appear to be responding to internal stimuli.. IMPRESSIONS: She is a 64-year-old female who has a long history of a psychiatric illness for which she has been treated with combination mood stabilizer and antipsychotic. She is more prominent negative than positive symptoms of her illness negative symptoms include a decrease in affective expression, flattening of affect, and possible anhedonia. She plans to continue outpatient treatment with her psychiatrist. There is no indication for transfer to psychiatric unit a referral for higher level of outpatient psychiatric treatment. DIAGNOSIS: Schizoaffective disorder with good prognostic features PLAN: Continue current medications-Haldol 1 mg at bedtime and Lamictal 200 mg daily. There is no indication for transfer to psychiatric unit. Follow up with Dr. Zaragoza as an outpatient. Thank you for the consult. Psychiatry will sign off . 11/24/19 14:04
[2019-11-24] MEDS ORDERED: LEVOFLOXACIN 250 MG TAB PO SCH (17:00)
--- NOTE | 2019-11-24 20:26 | P.PN ---
Progress Note - Text Progress Note Date: 11/24/19 Chief Complaint: Nausea vomiting diarrhea History of presenting complaint: This is a pleasant 64-year-old patient of Dr. Reuben Chino. Chronic stable medical conditions include bipolar, hypertension, GERD. Patient's present to the ER with 2 weeks of nausea vomiting not able to keep anything down some diarrhea abdominal pain. Denies any fever and chills. Tired rundown. Patient appears to be rather distant during the history giving. Not been able to eat much. ER physician related at all from time she says she is fine though she'll often have other contradictory complaints. She was able to eat only a very small amount in the ER the last if she ate she said yes. Admitted with-acute gastroenteritis. Started on IV fluids and Flagyl and ciprofloxacin. Seen by psychiatry. Diagnosed with-schizoaffective disorder. Today-feeling a bit better. By lunchtime she was eating better. Seen by psychiatry. Diarrhea is decreasing no vomiting Review of systems: Was done for constitutional, cardiovascular, GI, pulmonary. relevant finding as above Active Medications Amlodipine Besylate (Norvasc) 2.5 mg PO DAILY [facility] Last Admin: 11/24/19 07:52 Dose: 2.5 mg Documented by: Famotidine (Pepcid) 40 mg PO HS [facility] Last Admin: 11/23/19 20:43 Dose: 40 mg Documented by: Haloperidol (Haldol) 1 mg PO HS [facility] Last Admin: 11/23/19 20:43 Dose: 1 mg Documented by: Ceftriaxone Sodium 1 gm/ (Sodium Chloride) 50 mls @ 100 mls/hr IVPB Q24HR [facility] Last Admin: 11/24/19 07:51 Dose: 100 mls/hr Documented by: Lactated Ringer's (Lactated Ringers) 1,000 mls @ 150 mls/hr IV .Q6H40M [facility] Last Admin: 11/24/19 19:37 Dose: Not Given Documented by: Lamotrigine (Lamictal) 200 mg PO DAILY [facility] Last Admin: 11/24/19 07:52 Dose: 200 mg Documented by: Levofloxacin (Levaquin) 250 mg PO Q24H [facility] Last Admin: 11/24/19 16:43 Dose: 250 mg Documented by: Metronidazole (Flagyl) 500 mg PO TID [facility] Last Admin: 11/24/19 16:43 Dose: 500 mg Documented by: Pantoprazole Sodium (Protonix) 40 mg PO AC-BRKFST [facility] Last Admin: 11/24/19 07:52 Dose: 40 mg Documented by: Physical examination: VITAL SIGNS: 98.5, 105, 18, 141/91, Farrah 4% room air GENERAL: BMI 35.3, laying in bed, slightly more perky EYES: Pupils equal. Conjunctiva normal. HEENT: External appearance of nose and ears normal, oral cavity-dry. NECK: JVD not raised; masses not palpable. HEART: First and second heart sounds are normal; no edema. LUNGS: Respiratory rate normal; clear to auscultation. ABDOMEN: Soft, minimal tenderness, liver spleen not palpable, no masses palpable. PSYCH: Answering questions better INVESTIGATIONS, reviewed in the clinical context: White count 10.8 hemoglobin 10.5 potassium 4 bun 24 creatinine 1.32 bicarb 20 Previous testing White count 13.8 hemoglobin 12.2 platelets 324 potassium 5.1 bun 33 creatinine 1.55 UA positive for leukoesterase, squamous epithelial cells-23 EKG tracing personally reviewed by me-sinus rhythm with VC Chest x-ray film personally reviewed by me-no obvious infiltrate, some elevation of the right diaphragm Assessment: -Patient presents with over 10 days of nausea vomiting abdominal pain some loose stools. Had only one loose stool today. Appears to be acute gastroenteritis. Given the duration of symptoms will empirically treat with oral antibiotics. -Schizoaffective disorder -Essential hypertension -GERD -Acute kidney injury likely prerenal Plan: Encourage oral intake. Continue oral antibiotic. IV fluids to continue. Repeat labs in the morning. Encouraged to be out of bed.
[2019-11-24] MEDS: FAMOTIDINE 20 MG TAB PO SCH (20:33)
[2019-11-24] MEDS: HALOPERIDOL 1 MG TAB PO SCH (20:33)
[2019-11-25] MEDS: LACTATED RINGERS 1,000 ML IV SCH ×2 (03:30→12:53)
[2019-11-25 07:08] LABS: Calcium 8.7 mg/dL (8.4-10.2); Potassium 4.2 mmol/L (3.5-5.1)
[2019-11-25 08:16] VITALS: BP 138/94; PULSE 105; RESP 18; TEMP 97.9
[2019-11-25] MEDS: lamoTRIgine 100 MG TAB PO SCH (08:20)
[2019-11-25] MEDS: metroNIDAZOLE 500 MG TAB PO SCH (08:20)
[2019-11-25] MEDS: PANTOPRAZOLE 40 MG TABLET PO SCH (08:20)
[2019-11-25] MEDS: amLODIPine 2.5 MG TAB PO SCH (08:20)
[2019-11-25] MEDS ORDERED: ENOXAPARIN 40 MG/0.4 ML SYRINGE SQ SCH (12:00)
[2019-11-25] MEDS ORDERED: NITROFURANTOIN MONOHYD/M-CRYST 100 MG CAP PO SCH (13:00)
--- NOTE | 2019-11-25 14:16 | CDI ---
Documentation Clarification Form Date: 11/25/2019 02:06:38 PM From: Brigette Alvarado Admit Date: 11/23/2019 02:22:00 PM Patient Name: Emy Calle Visit Number: [id number] Discharge Date: ATTENTION: The Clinical Documentation Specialists (CDI) and [facility] Coding Staff appreciate your assistance in clarifying documentation. Please respond to the clarification below the line at the bottom and electronically sign. The CDI & [facility] Coding staff will review the response and follow-up if needed. Please note: Queries are made part of the Legal Health Record. If you have any questions, please contact the author of this message via ITS. Dr. Gage Peck UTI is documented in the ED report 11/22 History/Risk Factors: 64-year-old female presents to the ED with two weeks of nausea and vomiting unable to keep anything down. Medical history HTN, GERD and Bipolar. Clinical Indicators: 11/22 Vital Signs: 119/91 129 99.6 92 11/22 WBC: 15.8 11/22 Urinalysis: Leukocyte Esterase moderate Wbc 20, Bacteria many 11/22 Urine Culture: Escherichia coli Treatment Antibiotics: 11/22 Rocephin Ivpb Daily, Levaquin oral daily, Flagyl oral TID Please document the condition that these clinical indicators signify, whether Present on Admission, and cause if known: UTI POA UTI Ruled Out Contaminated specimen Other, please specify Unable to determine (Last Revision: April 2017) UTI, POA MTDD
--- NOTE | 2019-11-25 15:07 | US ---
EXAMINATION TYPE: US kidneys/renal and bladder DATE OF EXAM: 11/25/2019 COMPARISON: Prior renal ultrasound November 07, 2015 CLINICAL HISTORY: assess for CKD. CKD, UTI EXAM MEASUREMENTS: Right Kidney: 9.0 x 4.2 x 5.1 cm Left Kidney: 9.1 x 4.4 x 4.4 cm Technical limitations due to large amount of overlying bowel content Right Kidney: echogenic, thin renal cortex, dense echogenic area upper pole = 0.4cm Left Kidney: echogenic, thin renal cortex Bladder: patient urinated 5 minutes prior to exam. free fluid noted within pelvis Bilateral Jets seen: no Suboptimal study due to body habitus and overlying bowel gas. Suboptimal evaluation of the bladder in the pelvis. Cannot exclude some pelvic ascites on images saved. Correlate clinically. Slightly dimin ished size to both kidneys with cortical thinning and increased cortical echogenicity. Possible 4 mm nonobstructing right renal calculus. No gross hydronephrosis noted bilaterally. Likely tiny simple ap pearing subcentimeter cysts in the left kidney to lower pole level towards end of study. IMPRESSION: Suboptimal study without gross hydronephrosis identified bilaterally.
--- NOTE | 2019-11-25 22:48 | P.PN ---
Progress Note - Text Progress Note Date: 11/25/19 Chief Complaint: Nausea vomiting diarrhea History of presenting complaint: This is a pleasant 64-year-old patient of Dr. Reuben Chino. Chronic stable medical conditions include bipolar, hypertension, GERD. Patient's present to the ER with 2 weeks of nausea vomiting not able to keep anything down some diarrhea abdominal pain. Denies any fever and chills. Tired rundown. Patient appears to be rather distant during the history giving. Not been able to eat much. ER physician related at all from time she says she is fine though she'll often have other contradictory complaints. She was able to eat only a very small amount in the ER the last if she ate she said yes. Admitted with-acute gastroenteritis. Started on IV fluids and Flagyl and ciprofloxacin. Seen by psychiatry. Diagnosed with-schizoaffective disorder. No change in medications. Nitrofurantoin was added for the ESBL/E. coli. Today-. He much better. Tolerating a diet. Comfortable. Smiling. Nitrofurantoin was started today. Discussed with the patient. Follow-up Dr. Zepeda as an outpatient. Discussion and discharge planning more than 35 minutes Consultation: Dr. Sellers from psychiatry Physical examination: VITAL SIGNS: Recent 0.9, 105, 18, 138/94, 96% room air GENERAL: BMI 35.3, sitting on chair, comfortable, smiling EYES: Pupils equal. Conjunctiva normal. HEENT: External appearance of nose and ears normal, oral cavity-dry. NECK: JVD not raised; masses not palpable. HEART: First and second heart sounds are normal; no edema. LUNGS: Respiratory rate normal; clear to auscultation. ABDOMEN: Soft, no tenderness, liver spleen not palpable, no masses palpable. PSYCH: Answering questions INVESTIGATIONS, reviewed in the clinical context: Potassium 4.2 bun 23 creatinine 1.43 Previous testing White count 13.8 hemoglobin 12.2 platelets 324 potassium 5.1 bun 33 creatinine 1.55 UA positive for leukoesterase, squamous epithelial cells-23 EKG tracing personally reviewed by me-sinus rhythm with VC Chest x-ray film personally reviewed by me-no obvious infiltrate, some elevation of the right diaphragm Assessment: -Patient presents with over 10 days of nausea vomiting abdominal pain some loose stools. Had only one loose stool today. Appears to be acute gastroenteritis. Given the duration of symptoms will empirically treat with oral antibiotics. -Schizoaffective disorder -Essential hypertension -Acute UTI from cystitis from E. coli/ESBL. -GERD -Patient has no acute kidney injury. -Chronic kidney disease stage III likely nephrosclerosis, with hypertension Disposition: Home
--- NOTE | 2019-11-26 11:20 | CDI ---
Documentation Clarification Form Date: 11/26/19 From: Lori Moya CCS Phone: If you have a question about this query, please contact Stacy Tiwari, [employer] at [phone] between 8am and 5pm. Admit Date: 11/23/19 Discharge Date:11/25/19 Patient Name: Emy Calle Visit Number: [id number] ATTENTION: The Clinical Documentation Specialists (CDI) and [facility] Coding Staff appreciate your assistance in clarifying documentation. Please respond to the clarification below the line at the bottom and electronically sign. The CDI & [facility] Coding staff will review the response and follow-up if needed. Please note: Queries are made part of the Legal Health Record. If you have any questions, please contact the author of this message via ITS. Dear Dr. Peck, Acute gastroenteritis is documented in the H&P, PNs. H&P documents: We'll start the patient on Flagyl 5 mg 3 times a day and ciprofloxacin 500 mg twice a day. History/Risk Factors: Cystitis w/ E. Coli, Dehydration, CKD, HTN Clinical Indicators: 10 days of nausea vomiting abdominal pain some loose stools Lab findings: WBC 15.8 Treatment: Flagyl 500 mg PO TID In your professional opinion, can you please clarify acute gastroenteritis? Infectious gastroenteritis Viral gastroenteritis Non-infectious gastroenteritis Other, please specify Unable to determine Possible acute infectious gastroenteritis, POA MTDD
--- NOTE | 2019-11-26 16:07 | P.DS ---
Providers Date of admission: 11/23/19 14:22 Expected date of discharge: 11/25/19 Attending physician: Gage Peck Consults: 11/23/19 16:52 Consult Physician Routine Consulting Provider: Reuben Lewis Reason/Comments: bipolar depression Do you want consulting provider notified?: Yes [facility]: Chief Complaint: Nausea vomiting diarrhea History of presenting complaint: This is a pleasant 64-year-old patient of Dr. Reuben Chino. Chronic stable medical conditions include bipolar, hypertension, GERD. Patient's present to the ER with 2 weeks of nausea vomiting not able to keep anything down some diarrhea abdominal pain. Denies any fever and chills. Tired rundown. Patient appears to be rather distant during the history giving. Not been able to eat much. ER physician related at all from time she says she is fine though she'll often have other contradictory complaints. She was able to eat only a very small amount in the ER the last if she ate she said yes. Admitted with-acute gastroenteritis. Started on IV fluids and Flagyl and ciprofloxacin. Seen by psychiatry. Diagnosed with-schizoaffective disorder. No change in medications. Nitrofurantoin was added for the ESBL/E. coli. Today-. He much better. Tolerating a diet. Comfortable. Smiling. Nitrofurantoin was started today. Discussed with the patient. Follow-up Dr. Zepeda as an outpatient. Discussion and discharge planning more than 35 minutes Consultation: Dr. Sellers from psychiatry Physical examination: VITAL SIGNS: Recent 0.9, 105, 18, 138/94, 96% room air GENERAL: BMI 35.3, sitting on chair, comfortable, smiling EYES: Pupils equal. Conjunctiva normal. HEENT: External appearance of nose and ears normal, oral cavity-dry. NECK: JVD not raised; masses not palpable. HEART: First and second heart sounds are normal; no edema. LUNGS: Respiratory rate normal; clear to auscultation. ABDOMEN: Soft, no tenderness, liver spleen not palpable, no masses palpable. PSYCH: Answering questions INVESTIGATIONS, reviewed in the clinical context: Potassium 4.2 bun 23 creatinine 1.43 Previous testing White count 13.8 hemoglobin 12.2 platelets 324 potassium 5.1 bun 33 creatinine 1.55 UA positive for leukoesterase, squamous epithelial cells-23 EKG tracing personally reviewed by me-sinus rhythm with VC Chest x-ray film personally reviewed by me-no obvious infiltrate, some elevation of the right diaphragm Assessment: -Patient presents with over 10 days of nausea vomiting abdominal pain some loose stools. Had only one loose stool today. Appears to be acute gastroenteritis. Given the duration of symptoms will empirically treat with oral antibiotics. -Schizoaffective disorder -Essential hypertension -Acute UTI from cystitis from E. coli/ESBL. -GERD -Patient has no acute kidney injury. -Chronic kidney disease stage III likely nephrosclerosis, with hypertension Disposition: Home Patient Condition at Discharge: Stable Plan - Discharge Summary New Discharge Prescriptions: New metroNIDAZOLE [Flagyl] 500 mg PO TID #6 tab Levofloxacin [Levaquin] 250 mg PO Q24H #2 tab Nitrofurantoin Macrocrystal [Nitrofurantoin] 50 mg PO BID #14 capsule Continue amLODIPine [Norvasc] 2.5 mg PO DAILY Ferrous Sulfate [Iron (65 MG Elemental)] 325 mg PO DAILY Cholecalciferol [Vitamin D3 (25 Mcg = 1000 Iu)] 5,000 unit PO DAILY Haloperidol [Haldol] 1 mg PO HS lamoTRIgine [LaMICtal] 200 mg PO DAILY Omeprazole [PriLOSEC] 40 mg PO DAILY Discontinued Famotidine 40 mg PO BID Discharge Medication List Cholecalciferol [Vitamin D3 (25 Mcg = 1000 Iu)] 5,000 unit PO DAILY 11/23/19 [History] Ferrous Sulfate [Iron (65 MG Elemental)] 325 mg PO DAILY 11/23/19 [History] Haloperidol [Haldol] 1 mg PO HS 11/23/19 [History] Omeprazole [PriLOSEC] 40 mg PO DAILY 11/23/19 [History] amLODIPine [Norvasc] 2.5 mg PO DAILY 11/23/19 [History] lamoTRIgine [LaMICtal] 200 mg PO DAILY 11/23/19 [History] Levofloxacin [Levaquin] 250 mg PO Q24H #2 tab 11/25/19 [Rx] Nitrofurantoin Macrocrystal [Nitrofurantoin] 50 mg PO BID #14 capsule 11/25/19 [Rx] metroNIDAZOLE [Flagyl] 500 mg PO TID #6 tab 11/25/19 [Rx] Follow up Appointment(s)/Referral(s): Chelsey Zepeda MD [STAFF PHYSICIAN] - 12/23/19 10:40 am (with POLICE STENOGRAPHER) Reuben Chino MD [Primary Care Provider] - 1-2 days (office not answering. Please call to make appointment) Patient Instructions/Handouts: Dehydration (DC), Urinary Tract Infection in Women (DC) Activity/Diet/Wound Care/Special Instructions: bmp - 3days Discharge Disposition: HOME SELF-CARE
== END 2019-11-25 14:48 | disposition home or self-care (01) | DRG 690 ==
LOC: EC 09:37 → 4SSUR 14:22
PROVIDERS: ADMIT Hospitalist; ATTEND Hospitalist
DX: N30.90 Cystitis, unspecified without hematuria (principal); A09 Infectious gastroenteritis and colitis, unspecified; F25.9 Schizoaffective disorder, unspecified; N18.3 Chronic kidney disease, stage 3 (moderate); Z11.59 Encounter for screening for other viral diseases; F31.9 Bipolar disorder, unspecified; E86.0 Dehydration; R00.0 Tachycardia, unspecified; K21.9 Gastro-esophageal reflux disease without esophagitis; I12.9 Hypertensive chronic kidney disease with stage 1 through stage 4 chronic kidney disease, or unspecified chronic kidney disease; B96.20 Unspecified Escherichia coli [E. coli] as the cause of diseases classified elsewhere; E66.9 Obesity, unspecified; Z68.35 Body mass index [BMI] 35.0-35.9, adult; Z71.3 Dietary counseling and surveillance; Z79.899 Other long term (current) drug therapy
CPT/HCPCS: 36415; 71046; 76770; 80048; 80053; 81001; 82150; 83605; 83690; 84484; 85025; 85027; 87040; 87077; 87086; 87186; 87635; 93005; 96361; 96374; 96375; 99285

== ENCOUNTER 2019-11-25 16:54 | Inpatient (IN) | payer MEDICARE ==
[2019-11-25] MEDS ORDERED: SODIUM CHLORIDE 0.9% 500 ML 500 ML IV ONE ×2 (17:14→17:45)
--- NOTE | 2019-11-25 17:19 | ED ---
General Adult HPI - General Chief complaint: Recheck/Abnormal Lab/Rx Stated complaint: uti/revisit Time Seen by Provider: 11/25/19 17:03 Source: EMS Mode of arrival: EMS Limitations: no limitations - Related Data Home Medications Medication Instructions Recorded Confirmed Cholecalciferol [Vitamin D3 (25 5,000 unit PO DAILY 11/23/19 11/25/19 Mcg = 1000 Iu)] Ferrous Sulfate [Iron (65 MG 325 mg PO DAILY 11/23/19 11/25/19 Elemental)] Haloperidol [Haldol] 1 mg PO HS 11/23/19 11/25/19 Omeprazole [PriLOSEC] 40 mg PO DAILY 11/23/19 11/25/19 amLODIPine [Norvasc] 2.5 mg PO DAILY 11/23/19 11/25/19 lamoTRIgine [LaMICtal] 200 mg PO DAILY 11/23/19 11/25/19 Previous Rx's Medication Instructions Recorded Levofloxacin [Levaquin] 250 mg PO Q24H #2 tab 11/25/19 Nitrofurantoin Macrocrystal 50 mg PO BID #14 capsule 11/25/19 [Nitrofurantoin] metroNIDAZOLE [Flagyl] 500 mg PO TID #6 tab 11/25/19 Allergies Allergy/AdvReac Type Severity Reaction Status Date / Time No Known Allergies Allergy Verified 11/25/19 18:10 Review of Systems ROS Statement: Those systems with pertinent positive or pertinent negative responses have been documented in the HPI. ROS Other: All systems not noted in ROS Statement are negative. Past Medical History Past Medical History: Hypertension History of Any Multi-Drug Resistant Organisms: None Reported Past Surgical History: Section Past Psychological History: Bipolar Smoking Status: Never smoker Past Alcohol Use History: None Reported Past Drug Use History: None Reported General Exam Limitations: no limitations Course Vital Signs 11/25/19 11/25/19 11/25/19 16:56 16:57 17:02 Temperature 98.2 F Pulse Rate 159 H Respiratory 26 H 26 H Rate Blood Pressure 149/107 O2 Sat by Pulse 85 L 97 Oximetry 11/25/19 11/25/19 11/25/19 17:53 18:00 19:12 Temperature 100.3 F H 99.0 F Pulse Rate 134 H 112 H Respiratory 18 18 Rate Blood Pressure 106/80 O2 Sat by Pulse 97 97 Oximetry 11/25/19 21:21 Temperature 98.6 F Pulse Rate 106 H Respiratory 18 Rate Blood Pressure 107/69 O2 Sat by Pulse 98 Oximetry Medical Decision Making - Lab Data Result diagrams: 11/26/19 07:28 11/25/19 17:46 Lab Results 11/25/19 11/25/19 11/25/19 Range/Units 17:46 17:46 17:46 WBC 16.1 H (3.8-10.6) k/uL RBC 3.95 (3.80-5.40) m/uL Hgb 11.4 (11.4-16.0) gm/dL Hct 36.6 (34.0-46.0) % MCV 92.7 (80.0-100.0) fL MCH 28.9 (25.0-35.0) pg MCHC 31.2 (31.0-37.0) g/dL RDW 14.3 (11.5-15.5) % Plt Count 277 (150-450) k/uL Neutrophils % 90 % Lymphocytes % 2 % Monocytes % 5 % Eosinophils % 1 % Basophils % 1 % Neutrophils # 14.5 H (1.3-7.7) k/uL Lymphocytes # 0.4 L (1.0-4.8) k/uL Monocytes # 0.8 (0-1.0) k/uL Eosinophils # 0.2 (0-0.7) k/uL Basophils # 0.1 (0-0.2) k/uL Hypochromasia Slight PT 11.6 (9.0-12.0) sec INR 1.1 (<1.2) APTT 24.1 (22.0-30.0) sec D-Dimer >35.20 H (<0.60) mg/L FEU Sodium 139 (137-145) mmol/L Potassium 4.2 (3.5-5.1) mmol/L Chloride 110 H (98-107) mmol/L Carbon Dioxide 20 L (22-30) mmol/L Anion Gap 9 mmol/L BUN 25 H (7-17) mg/dL Creatinine 1.75 H (0.52-1.04) mg/dL Est GFR (CKD-EPI)AfAm 34 (>60 ml/min/1.73 sqM) Est GFR (CKD-EPI)NonAf 30 (>60 ml/min/1.73 sqM) Glucose 140 H (74-99) mg/dL Plasma Lactic Acid [place] (0.7-2.0) mmol/L Calcium 9.2 (8.4-10.2) mg/dL Magnesium 1.4 L (1.6-2.3) mg/dL Total Bilirubin 0.3 (0.2-1.3) mg/dL AST 34 (14-36) U/L ALT 15 (4-34) U/L Alkaline Phosphatase 87 (38-126) U/L Troponin I (0.000-0.034) ng/mL NT-Pro-B Natriuret Pep pg/mL Total Protein 6.1 L (6.3-8.2) g/dL Albumin 3.1 L (3.5-5.0) g/dL Urine Color Urine Appearance (Clear) Urine pH (5.0-8.0) Ur Specific [place] (1.001-1.035) Urine Protein (Negative) Urine Glucose (UA) (Negative) Urine Ketones (Negative) Urine Blood (Negative) Urine Nitrite (Negative) Urine Bilirubin (Negative) Urine Urobilinogen (<2.0) mg/dL Ur Leukocyte Esterase (Negative) Urine RBC (0-5) /hpf Urine WBC (0-5) /hpf Ur Squamous Epith Cells (0-4) /hpf Urine Bacteria (None) /hpf 11/25/19 11/25/19 11/25/19 Range/Units 17:46 17:46 17:46 WBC (3.8-10.6) k/uL RBC (3.80-5.40) m/uL Hgb (11.4-16.0) gm/dL Hct (34.0-46.0) % MCV (80.0-100.0) fL MCH (25.0-35.0) pg MCHC (31.0-37.0) g/dL RDW (11.5-15.5) % Plt Count (150-450) k/uL Neutrophils % % Lymphocytes % % Monocytes % % Eosinophils % % Basophils % % Neutrophils # (1.3-7.7) k/uL Lymphocytes # (1.0-4.8) k/uL Monocytes # (0-1.0) k/uL Eosinophils # (0-0.7) k/uL Basophils # (0-0.2) k/uL Hypochromasia PT (9.0-12.0) sec INR (<1.2) APTT (22.0-30.0) sec D-Dimer (<0.60) mg/L FEU Sodium (137-145) mmol/L Potassium (3.5-5.1) mmol/L Chloride (98-107) mmol/L Carbon Dioxide (22-30) mmol/L Anion Gap mmol/L BUN (7-17) mg/dL Creatinine (0.52-1.04) mg/dL Est GFR (CKD-EPI)AfAm (>60 ml/min/1.73 sqM) Est GFR (CKD-EPI)NonAf (>60 ml/min/1.73 sqM) Glucose (74-99) mg/dL Plasma Lactic Acid [place] 1.9 (0.7-2.0) mmol/L Calcium (8.4-10.2) mg/dL Magnesium (1.6-2.3) mg/dL Total Bilirubin (0.2-1.3) mg/dL AST (14-36) U/L ALT (4-34) U/L Alkaline Phosphatase (38-126) U/L Troponin I <0.012 (0.000-0.034) ng/mL NT-Pro-B Natriuret Pep 687 pg/mL Total Protein (6.3-8.2) g/dL Albumin (3.5-5.0) g/dL Urine Color Urine Appearance (Clear) Urine pH (5.0-8.0) Ur Specific [place] (1.001-1.035) Urine Protein (Negative) Urine Glucose (UA) (Negative) Urine Ketones (Negative) Urine Blood (Negative) Urine Nitrite (Negative) Urine Bilirubin (Negative) Urine Urobilinogen (<2.0) mg/dL Ur Leukocyte Esterase (Negative) Urine RBC (0-5) /hpf Urine WBC (0-5) /hpf Ur Squamous Epith Cells (0-4) /hpf Urine Bacteria (None) /hpf 11/25/19 Range/Units 18:35 WBC (3.8-10.6) k/uL RBC (3.80-5.40) m/uL Hgb (11.4-16.0) gm/dL Hct (34.0-46.0) % MCV (80.0-100.0) fL MCH (25.0-35.0) pg MCHC (31.0-37.0) g/dL RDW (11.5-15.5) % Plt Count (150-450) k/uL Neutrophils % % Lymphocytes % % Monocytes % % Eosinophils % % Basophils % % Neutrophils # (1.3-7.7) k/uL Lymphocytes # (1.0-4.8) k/uL Monocytes # (0-1.0) k/uL Eosinophils # (0-0.7) k/uL Basophils # (0-0.2) k/uL Hypochromasia PT (9.0-12.0) sec INR (<1.2) APTT (22.0-30.0) sec D-Dimer (<0.60) mg/L FEU Sodium (137-145) mmol/L Potassium (3.5-5.1) mmol/L Chloride (98-107) mmol/L Carbon Dioxide (22-30) mmol/L Anion Gap mmol/L BUN (7-17) mg/dL Creatinine (0.52-1.04) mg/dL Est GFR (CKD-EPI)AfAm (>60 ml/min/1.73 sqM) Est GFR (CKD-EPI)NonAf (>60 ml/min/1.73 sqM) Glucose (74-99) mg/dL Plasma Lactic Acid [place] (0.7-2.0) mmol/L Calcium (8.4-10.2) mg/dL Magnesium (1.6-2.3) mg/dL Total Bilirubin (0.2-1.3) mg/dL AST (14-36) U/L ALT (4-34) U/L Alkaline Phosphatase (38-126) U/L Troponin I (0.000-0.034) ng/mL NT-Pro-B Natriuret Pep pg/mL Total Protein (6.3-8.2) g/dL Albumin (3.5-5.0) g/dL Urine Color Yellow Urine Appearance Clear (Clear) Urine pH 5.5 (5.0-8.0) Ur Specific [place] 1.013 (1.001-1.035) Urine Protein 1+ H (Negative) Urine Glucose (UA) Negative (Negative) Urine Ketones Negative (Negative) Urine Blood Negative (Negative) Urine Nitrite Negative (Negative) Urine Bilirubin Negative (Negative) Urine Urobilinogen <2.0 (<2.0) mg/dL Ur Leukocyte Esterase Moderate H (Negative) Urine RBC 4 (0-5) /hpf Urine WBC 5 (0-5) /hpf Ur Squamous Epith Cells 1 (0-4) /hpf Urine Bacteria Rare H (None) /hpf Disposition Clinical Impression: UTI (urinary tract infection), Tachycardia, Hypoxia, Sepsis Disposition: ADMITTED IP TO THIS HOSP Condition: Serious
--- NOTE | 2019-11-25 17:29 | XR ---
EXAMINATION TYPE: XR chest 2V DATE OF EXAM: 11/25/2019 COMPARISON: 11/23/2019 HISTORY: Shortness of breath TECHNIQUE: Frontal and lateral views of the chest are obtained. FINDINGS: Scattered senescent parenchymal changes noted. Examination is limited by the degree of inspiration. Strandy basilar densities may reflect atelectasi s. No definite focal consolidation at this time. Heart size is stable. Mediastinal structures are stable and grossly unremarkable. No evidence for hilar prominence. Degenerative changes dorsal spine. IMPRESSION: 1. Examination is limited by the degree of inspiration. Strandy basilar densities may reflect atelect asis. No definite focal consolidation at this time.
--- NOTE | 2019-11-25 17:43 | ED ---
General Adult HPI - General Chief complaint: Recheck/Abnormal Lab/Rx Stated complaint: uti/revisit Time Seen by Provider: 11/25/19 17:03 Source: EMS, RN notes reviewed, old records reviewed Mode of arrival: EMS Limitations: no limitations - History of Present Illness Initial comments: 64-year-old female patient comes to ED for chief complaint of generalized weakness. Patient was admitted to the hospital on 11/22 for a urinary tract infection. At that time patient was complaining of diarrhea and nausea for the last 2 weeks. Patient was initiated on antibiotics ciprofloxacin and Flagyl and discharged earlier today. Upon arriving home from hospital patient fell leaving the car. Patient fell forward, catching herself with her arms. Denies any trau ma to head or neck. Denies any pain in any of her extremities. However patient states that she is very weak. Patient was helped to get up by her and walked in the house where she sat on the ground and was unable to get up off the couch. She denies any pain at this time. Does report that she was short of breath at home. Denies any shortness of breath upon initial evaluation was reportedly short of breath in triage. Systemic: Pt denies fatigue, fever/chills, rash. Pt denies weakness, night sweats, weight loss. Neuro: Pt denies headache, visual disturbances, syncope or pre-syncope. HEENT: Pt denies ocular discharge or irritation, otalgia, rhinorrhea, pharyngitis or notable lymphadenopathy. Cardiopulmonary: Pt denies chest pain, heart palpitations, dyspnea on exertion. Abdominal/GI: Pt denies abdominal pain, n/v/d. : Pt denies dysuria, burning w/ urination, frequency/urgency. Denies new onset urinary or bowel incontinence. MSK: Pt denies myalgia, loss of strength or function in extremities. Neuro: Pt denies new onset weakness, paresthesias. - Related Data Home Medications Medication Instructions Recorded Confirmed Cholecalciferol [Vitamin D3 (25 5,000 unit PO DAILY 11/23/19 11/25/19 Mcg = 1000 Iu)] Ferrous Sulfate [Iron (65 MG 325 mg PO DAILY 11/23/19 11/25/19 Elemental)] Haloperidol [Haldol] 1 mg PO HS 11/23/19 11/25/19 Omeprazole [PriLOSEC] 40 mg PO DAILY 11/23/19 11/25/19 amLODIPine [Norvasc] 2.5 mg PO DAILY 11/23/19 11/25/19 lamoTRIgine [LaMICtal] 200 mg PO DAILY 11/23/19 11/25/19 Previous Rx's Medication Instructions Recorded Levofloxacin [Levaquin] 250 mg PO Q24H #2 tab 11/25/19 Nitrofurantoin Macrocrystal 50 mg PO BID #14 capsule 11/25/19 [Nitrofurantoin] metroNIDAZOLE [Flagyl] 500 mg PO TID #6 tab 11/25/19 Allergies Allergy/AdvReac Type Severity Reaction Status Date / Time No Known Allergies Allergy Verified 11/25/19 18:10 Review of Systems ROS Statement: Those systems with pertinent positive or pertinent negative responses have been documented in the HPI. ROS Other: All systems not noted in ROS Statement are negative. Past Medical History Past Medical History: Hypertension History of Any Multi-Drug Resistant Organisms: None Reported Past Surgical History: Section Past Psychological History: Bipolar Smoking Status: Never smoker Past Alcohol Use History: None Reported Past Drug Use History: None Reported General Exam - General Exam Comments Initial Comments: Constitutional: NAD, AOX3, Pt has pleasant affect. HEENT: NC/AT, trachea midline, neck supple, no lymphadenopathy. Posterior pharynx non erythematous, without exudates. External ears appear normal, without discharge. Mucous membranes moist. Eyes PERRLA, EOM intact. There is no scleral icterus. No pallor noted. Cardiopulmonary: RRR, no murmurs, rubs or gallops, no JVD noted. Lungs CTAB in anterior and posterior cole. No peripheral edema. Abdominal exam: Abdomen soft and non-distended. Abdomen non-tender to palpation in all 4 quadrants. No hepatosplenomegaly. No ecchymosis Neuro: CN II-XII intact. No nuchal rigidity. No raccon eyes, no fox sign, no hemotympanum. No cervical spinal tenderness. NIH 0. MSK: No posterior calf tenderness bilaterally, homans sign negative bilaterally. Posterior tibialis and radial pulse +2 bilaterally. Sensation intact in upper and lower extremities. No areas of tenderness in upper and lower extremities. Full active ROM in upper and lower extremities, 5/5 stregnth. Limitations: no limitations Course Vital Signs 05/11/25/19 11/25/19 16:56 16:57 17:02 Temperature 98.2 F Pulse Rate 159 H Respiratory 26 H 26 H Rate Blood Pressure 149/107 O2 Sat by Pulse 85 L 97 Oximetry 11/25/19 11/25/19 11/25/19 17:53 18:00 19:12 Temperature 100.3 F H 99.0 F Pulse Rate 134 H 112 H Respiratory 18 18 Rate Blood Pressure 106/80 O2 Sat by Pulse 97 97 Oximetry Medical Decision Making - Medical Decision Making 64-year-old female patient comes to ED for chief complaint of generalized weakness. Patient was admitted to the hospital on 11/22 for a urinary tract infection. At that time patient was complaining of diarrhea and nausea for the last 2 weeks. Patient was initiated on antibiotics ciprofloxacin and Flagyl and discharged earlier today. Upon arriving home from hospital patient fell leaving the car. Patient fell forward, catching herself with her arms. Denies any trauma to head or neck. Denies any pain in any of her extremities. However patient states that she is very weak. Patient was helped to get up by her and walked in the house where she sat on the ground and was unable to get up off the couch. She denies any pain at this time. Does report that she was short of breath at home. Denies any shortness of breath upon initial evaluation was reportedly short of breath in triage. Patient will sign himself initially display tachycardia of 159 bpm, tachypnea of 26 respirations per minute, oxygen saturation of 85 on room air. Patient was placed on nasal cannula oxygen eating and 97% continues to be tachycardic, mild fever 100.3 was noted on repeat set of vitals. Physical exam did not display acute pathology. I is 0. No extremities are tender to palpation. Lungs are clear to auscultation. Laboratory investigations are obtained, white blood cell count of 16.1, d-dimer very elevated, GFR 30. Troponin negative. BNP 687. UA does show significant improvement. Prior UA grew E. coli which was resistant to fluoroquinolones which patient was placed on. Does have sensitivity to Zosyn patient will be initiated on. Chest x-ray was limited active inspiration, strandy basilar densities may reflect atelectasis no definite focal consolidation at this time. Patient does meet SIRS criteria for sepsis. There is also concern for pulmonary embolism. As patient's kidney function is not optimal for IV contrast patient will be heparinized pending VQ scan. Patient be admitted for further evaluation. Case discussed in depth with Dr. Nguyen. - Lab Data Result diagrams: 11/25/19 17:46 11/25/19 17:46 Lab Results 11/25/19 11/25/19 11/25/19 Range/Units 17:46 17:46 17:46 WBC 16.1 H (3.8-10.6) k/uL RBC 3.95 (3.80-5.40) m/uL Hgb 11.4 (11.4-16.0) gm/dL Hct 36.6 (34.0-46.0) % MCV 92.7 (80.0-100.0) fL MCH 28.9 (25.0-35.0) pg MCHC 31.2 (31.0-37.0) g/dL RDW 14.3 (11.5-15.5) % Plt Count 277 (150-450) k/uL Neutrophils % 90 % Lymphocytes % 2 % Monocytes % 5 % Eosinophils % 1 % Basophils % 1 % Neutrophils # 14.5 H (1.3-7.7) k/uL Lymphocytes # 0.4 L (1.0-4.8) k/uL Monocytes # 0.8 (0-1.0) k/uL Eosinophils # 0.2 (0-0.7) k/uL Basophils # 0.1 (0-0.2) k/uL Hypochromasia Slight PT 11.6 (9.0-12.0) sec INR 1.1 (<1.2) APTT 24.1 (22.0-30.0) sec D-Dimer >35.20 H (<0.60) mg/L FEU Sodium 139 (137-145) mmol/L Potassium 4.2 (3.5-5.1) mmol/L Chloride 110 H (98-107) mmol/L Carbon Dioxide 20 L (22-30) mmol/L Anion Gap 9 mmol/L BUN 25 H (7-17) mg/dL Creatinine 1.75 H (0.52-1.04) mg/dL Est GFR (CKD-EPI)AfAm 34 (>60 ml/min/1.73 sqM) Est GFR (CKD-EPI)NonAf 30 (>60 ml/min/1.73 sqM) Glucose 140 H (74-99) mg/dL Plasma Lactic Acid [place] (0.7-2.0) mmol/L Calcium 9.2 (8.4-10.2) mg/dL Magnesium 1.4 L (1.6-2.3) mg/dL Total Bilirubin 0.3 (0.2-1.3) mg/dL AST 34 (14-36) U/L ALT 15 (4-34) U/L Alkaline Phosphatase 87 (38-126) U/L Troponin I (0.000-0.034) ng/mL NT-Pro-B Natriuret Pep pg/mL Total Protein 6.1 L (6.3-8.2) g/dL Albumin 3.1 L (3.5-5.0) g/dL Urine Color Urine Appearance (Clear) Urine pH (5.0-8.0) Ur Specific [place] (1.001-1.035) Urine Protein (Negative) Urine Glucose (UA) (Negative) Urine Ketones (Negative) Urine Blood (Negative) Urine Nitrite (Negative) Urine Bilirubin (Negative) Urine Urobilinogen (<2.0) mg/dL Ur Leukocyte Esterase (Negative) Urine RBC (0-5) /hpf Urine WBC (0-5) /hpf Ur Squamous Epith Cells (0-4) /hpf Urine Bacteria (None) /hpf 11/25/19 11/25/19 11/25/19 Range/Units 17:46 17:46 17:46 WBC (3.8-10.6) k/uL RBC (3.80-5.40) m/uL Hgb (11.4-16.0) gm/dL Hct (34.0-46.0) % MCV (80.0-100.0) fL MCH (25.0-35.0) pg MCHC (31.0-37.0) g/dL RDW (11.5-15.5) % Plt Count (150-450) k/uL Neutrophils % % Lymphocytes % % Monocytes % % Eosinophils % % Basophils % % Neutrophils # (1.3-7.7) k/uL Lymphocytes # (1.0-4.8) k/uL Monocytes # (0-1.0) k/uL Eosinophils # (0-0.7) k/uL Basophils # (0-0.2) k/uL Hypochromasia PT (9.0-12.0) sec INR (<1.2) APTT (22.0-30.0) sec D-Dimer (<0.60) mg/L FEU Sodium (137-145) mmol/L Potassium (3.5-5.1) mmol/L Chloride (98-107) mmol/L Carbon Dioxide (22-30) mmol/L Anion Gap mmol/L BUN (7-17) mg/dL Creatinine (0.52-1.04) mg/dL Est GFR (CKD-EPI)AfAm (>60 ml/min/1.73 sqM) Est GFR (CKD-EPI)NonAf (>60 ml/min/1.73 sqM) Glucose (74-99) mg/dL Plasma Lactic Acid [place] 1.9 (0.7-2.0) mmol/L Calcium (8.4-10.2) mg/dL Magnesium (1.6-2.3) mg/dL Total Bilirubin (0.2-1.3) mg/dL AST (14-36) U/L ALT (4-34) U/L Alkaline Phosphatase (38-126) U/L Troponin I <0.012 (0.000-0.034) ng/mL NT-Pro-B Natriuret Pep 687 pg/mL Total Protein (6.3-8.2) g/dL Albumin (3.5-5.0) g/dL Urine Color Urine Appearance (Clear) Urine pH (5.0-8.0) Ur Specific [place] (1.001-1.035) Urine Protein (Negative) Urine Glucose (UA) (Negative) Urine Ketones (Negative) Urine Blood (Negative) Urine Nitrite (Negative) Urine Bilirubin (Negative) Urine Urobilinogen (<2.0) mg/dL Ur Leukocyte Esterase (Negative) Urine RBC (0-5) /hpf Urine WBC (0-5) /hpf Ur Squamous Epith Cells (0-4) /hpf Urine Bacteria (None) /hpf 20/20 Range/Units 18:35 WBC (3.8-10.6) k/uL RBC (3.80-5.40) m/uL Hgb (11.4-16.0) gm/dL Hct (34.0-46.0) % MCV (80.0-100.0) fL MCH (25.0-35.0) pg MCHC (31.0-37.0) g/dL RDW (11.5-15.5) % Plt Count (150-450) k/uL Neutrophils % % Lymphocytes % % Monocytes % % Eosinophils % % Basophils % % Neutrophils # (1.3-7.7) k/uL Lymphocytes # (1.0-4.8) k/uL Monocytes # (0-1.0) k/uL Eosinophils # (0-0.7) k/uL Basophils # (0-0.2) k/uL Hypochromasia PT (9.0-12.0) sec INR (<1.2) APTT (22.0-30.0) sec D-Dimer (<0.60) mg/L FEU Sodium (137-145) mmol/L Potassium (3.5-5.1) mmol/L Chloride (98-107) mmol/L Carbon Dioxide (22-30) mmol/L Anion Gap mmol/L BUN (7-17) mg/dL Creatinine (0.52-1.04) mg/dL Est GFR (CKD-EPI)AfAm (>60 ml/min/1.73 sqM) Est GFR (CKD-EPI)NonAf (>60 ml/min/1.73 sqM) Glucose (74-99) mg/dL Plasma Lactic Acid [place] (0.7-2.0) mmol/L Calcium (8.4-10.2) mg/dL Magnesium (1.6-2.3) mg/dL Total Bilirubin (0.2-1.3) mg/dL AST (14-36) U/L ALT (4-34) U/L Alkaline Phosphatase (38-126) U/L Troponin I (0.000-0.034) ng/mL NT-Pro-B Natriuret Pep pg/mL Total Protein (6.3-8.2) g/dL Albumin (3.5-5.0) g/dL Urine Color Yellow Urine Appearance Clear (Clear) Urine pH 5.5 (5.0-8.0) Ur Specific [place] 1.013 (1.001-1.035) Urine Protein 1+ H (Negative) Urine Glucose (UA) Negative (Negative) Urine Ketones Negative (Negative) Urine Blood Negative (Negative) Urine Nitrite Negative (Negative) Urine Bilirubin Negative (Negative) Urine Urobilinogen <2.0 (<2.0) mg/dL Ur Leukocyte Esterase Moderate H (Negative) Urine RBC 4 (0-5) /hpf Urine WBC 5 (0-5) /hpf Ur Squamous Epith Cells 1 (0-4) /hpf Urine Bacteria Rare H (None) /hpf - EKG Data -: EKG Interpreted by Me (and Dr. Nguyen ) EKG Comments: Ventricular 145. And for 138, QRS 86, QT/QTC 266/413. Sinus tachycardia, possible left atrial enlargement, septal infarct agent determined. Abnormal EKG, no concern for acute ischemia. Disposition Clinical Impression: UTI (urinary tract infection), Tachycardia, Hypoxia, Sepsis Disposition: ADMITTED IP TO THIS HOSP Condition: Serious Is patient prescribed a controlled substance at d/c from ED?: No Referrals: Reuben Chino MD [Primary Care Provider] - 1-2 days
[2019-11-25] MEDS ORDERED: ACETAMINOPHEN TAB 325 MG TAB PO STA (17:56)
[2019-11-25 18:10] LABS: Basophils # (A) 0.1 k/uL (0-0.2); Basophils % (A) 1 %; Eosinophils # (A) 0.2 k/uL (0-0.7); Eosinophils % (A) 1 %; HCT 36.6 % (34.0-46.0); HGB 11.4 gm/dL (11.4-16.0); Hypochromasia Slight; Lymphocytes # (A) 0.4 k/uL (1.0-4.8); Lymphocytes % (A) 2 %; MCH 28.9 pg (25.0-35.0); MCHC 31.2 g/dL (31.0-37.0); MCV 92.7 fL (80.0-100.0); Mean Platelet Volume 7.8; Monocytes # (A) 0.8 k/uL (0-1.0); Monocytes % (A) 5 %; Neutrophils # (A) 14.5 k/uL (1.3-7.7); Neutrophils % (A) 90 %; Platelet Count 277 k/uL (150-450); RBC 3.95 m/uL (3.80-5.40); RDW 14.3 % (11.5-15.5); WBC 16.1 k/uL (3.8-10.6)
[2019-11-25] MEDS ORDERED: PIPERACILLIN-TAZOBACTAM 3.375 GM in SODIUM CHLORIDE 0.9% 100 ML IVPB STA (18:16)
[2019-11-25 18:24] LABS: Albumin 3.1 g/dL (3.5-5.0); Calcium 9.2 mg/dL (8.4-10.2); Magnesium 1.4 mg/dL (1.6-2.3); Potassium 4.2 mmol/L (3.5-5.1); Total Bilirubin 0.3 mg/dL (0.2-1.3); Total Protein 6.1 g/dL (6.3-8.2)
[2019-11-25 18:27] LABS: INR 1.1 (<1.2)
[2019-11-25 18:28] LABS: Partial Thromboplastin Time 24.1 sec (22.0-30.0); Prothrombin Time 11.6 sec (9.0-12.0)
[2019-11-25 18:39] LABS: D-Dimer >35.20 mg/L FEU (<0.60)
[2019-11-25] MEDS ORDERED: HEPARIN SODIUM,PORCINE 10,000 UNIT/ML 1 ML VIAL IV ONE (18:45)
[2019-11-25] MEDS ORDERED: HEPARIN SODIUM,PORCINE 5,000 UNIT/ML 1 ML VIAL IV PRN (18:45)
[2019-11-25 18:51] LABS: Appearance,Urine Clear (Clear); Bacteria,Urine Rare /hpf; Bilirubin,Urine Negative (Negative); Blood,Urine Negative (Negative); Color,Urine Yellow; Glucose,Urine (UA) Negative (Negative); Ketones,Urine Negative (Negative); Leukocyte Esterase,Urine Moderate (Negative); Nitrite,Urine Negative (Negative); PH, Urine 5.5 (5.0-8.0); Protein,Urine 1+ (Negative); RBC,Urine 4 /hpf (0-5); Specific Gravity,Urine 1.013 (1.001-1.035); Squamous Epithelial Cell,Urine 1 /hpf (0-4); Urobilinogen,Urine <2.0 mg/dL (<2.0); WBC,Urine 5 /hpf (0-5)
[2019-11-25] MEDS: HEPARIN SOD,PORK IN 0.45% NACL 25,000 UNIT in 0.45% NACL 1 250ML.BAG IV SCH (19:16)
[2019-11-25] MEDS ORDERED: NALOXONE 0.4 MG/ML 1 ML VIAL IV PRN (19:27)
--- NOTE | 2019-11-25 21:10 | NM ---
EXAMINATION TYPE: NM pul vent and perfuse DATE OF EXAM: 11/25/2019 COMPARISON: NONE HISTORY: Shortness of breath TECHNIQUE: Utilizing inhalation of 36.8 mCi Tc 99m DTPA aerosol and intravenous injection of 4.8 mCi of Tc 99m MAA, ventilation and perfusion images are acquired post injection in multiple projections. FINDINGS: Severe central accumulation of radiotracer compatible with COPD. Multiple matched defects noted bilat erally. No evidence for perfusion mismatch at this time. IMPRESSION: Intermediate probability for pulmonary embolism.
[2019-11-25] MEDS ORDERED: SODIUM BICARBONATE TAB 650 MG TAB PO SCH (22:00)
[2019-11-25] MEDS: HALOPERIDOL 1 MG TAB PO SCH (22:46)
[2019-11-25] MEDS: LACTATED RINGERS 1,000 ML IV SCH (22:46)
[2019-11-25] MEDS: PIPERACILLIN-TAZOBACTAM 3.375 GM in SODIUM CHLORIDE 0.9% 100 ML IVPB SCH (22:57)
--- NOTE | 2019-11-25 23:12 | US ---
EXAMINATION TYPE: US venous doppler duplex LE DATE OF EXAM: 11/25/2019 10:28 PM COMPARISON: NONE CLINICAL HISTORY: r/o dvt. R/O DVT. SOB. No hx of DVT. SIDE PERFORMED: Bilateral TECHNIQUE: The lower extremity deep venous system is examined utilizing real time linear array sonog rosa with graded compression, doppler sonography and color-flow sonography. VESSELS IMAGED: External Iliac Vein (EIV) Common Femoral Vein Deep Femoral Vein Greater Saphenous Vein * Femoral Vein Popliteal Vein Small Saphenous Vein * Proximal Calf Veins (* superficial vessels) Right Leg: No evidence of DVT in veins imaged at this time from prox calf veins to EIV. Left Leg: There appears to be echogenic thrombus within the left EIV, CFV, DFV, and proximal femoral vein. Trickle flow is seen in these veins. Prox calf veins to mid femoral vein appear compressible a nd to show color flow. IMPRESSION: There is evidence of acute and chronic deep vein thrombosis in the left leg. There is no evidence of deep vein thrombosis in the right leg.
[2019-11-26] MEDS: ACETAMINOPHEN TAB 325 MG TAB PO PRN ×2 (02:15→21:00)
[2019-11-26] MEDS: LACTATED RINGERS 1,000 ML IV SCH ×3 (06:06→23:34)
[2019-11-26] MEDS: PANTOPRAZOLE 40 MG TABLET PO SCH (06:34)
[2019-11-26] MEDS: PIPERACILLIN-TAZOBACTAM 3.375 GM in SODIUM CHLORIDE 0.9% 100 ML IVPB SCH (07:54)
[2019-11-26] MEDS: SODIUM BICARBONATE TAB 650 MG TAB PO SCH ×3 (07:54→21:00)
[2019-11-26] MEDS: lamoTRIgine 100 MG TAB PO SCH (07:54)
[2019-11-26] MEDS: CHOLECALCIFEROL 1,000 UNIT TAB PO SCH (07:54)
[2019-11-26] MEDS: FERROUS SULFATE 325 MG TAB PO SCH (07:55)
[2019-11-26 07:56] LABS: Basophils # (A) 0.1 k/uL (0-0.2); Basophils % (A) 1 %; Eosinophils # (A) 0.3 k/uL (0-0.7); Eosinophils % (A) 2 %; HCT 32.7 % (34.0-46.0); Hypochromasia Marked; Lymphocytes % (A) 7 %; MCH 28.6 pg (25.0-35.0); MCHC 30.2 g/dL (31.0-37.0); MCV 94.7 fL (80.0-100.0); Mean Platelet Volume 7.7; Monocytes # (A) 0.7 k/uL (0-1.0); Monocytes % (A) 5 %; Neutrophils # (A) 11.1 k/uL (1.3-7.7); Neutrophils % (A) 84 %; Platelet Count 280 k/uL (150-450); RBC 3.46 m/uL (3.80-5.40); RDW 14.5 % (11.5-15.5); WBC 13.2 k/uL (3.8-10.6)
[2019-11-26] MEDS ORDERED: LORazepam 2 MG/ML INJ IV STA (08:16)
[2019-11-26 08:31] LABS: HGB 9.9 gm/dL (11.4-16.0)
[2019-11-26] MEDS ORDERED: amLODIPine 2.5 MG TAB PO SCH (09:00)
--- NOTE | 2019-11-26 11:41 | CONS ---
CONSULTATION CHIEF COMPLAINT: Tachycardia and shortness of breath/ Emy is a 64-year-old lady with history of hypertension, recent urinary tract infection, who was in the hospital just 2 days ago when she was admitted with UTI and was discharged home. At that time, she presented with nausea, vomiting, diarrhea. She underwent stool studies, was started on Flagyl and Cipro, was discharged home. She comes back stating that she felt near syncopal, felt weak on her feet and almost bent down. She had urinary tract infection with moderate leukocyte esterase and rare WBCs. Her white cell count was elevated. The patient had a high D-dimer at more than 35, had a V/Q scan that showed intermediate probability. She started on IV heparin. She has mild shortness of breath, was initially tachycardiac, her tachycardia is improving. Blood pressure is normal. Her O2 sat is 99% on 2 L. Patient's clinical presentation is consistent with acute pulmonary embolism. PAST MEDICAL HISTORY: Significant for diarrhea, hypertension. MEDICATIONS: Include Levaquin, haloperidol, Norvasc, Prilosec, Lamictal, Flagyl. No known drug allergies. FAMILY HISTORY: Negative for premature coronary artery disease. SOCIAL HISTORY: Negative for smoking, EtOH abuse, or drug abuse. REVIEW OF SYSTEMS: HEENT: Unremarkable. CARDIAC: As described above. RESPIRATORY: As described above. GI: Negative. GENITOURINARY: Negative. ALLERGY/IMMUNOLOGY: Negative. SKIN: Negative. MUSCULOSKELETAL: Significant for arthritis. PSYCHOSOCIAL: Negative. ENDOCRINE: Negative. DERM: Negative. CONSTITUTIONAL: Negative. ONCOLOGICAL: Negative. VIDEO PLAYER MECHANIC: Negative. PHYSICAL EXAMINATION: On exam, patient is afebrile. Heart rate is 90 beats per minute. Blood pressure is 120/82, respiratory rate is 18, O2 saturation is 99% on 2 L. There is no jugular venous distention. Carotid upstroke is normal. There is no bruit. Chest exam reveals good air entry bilaterally. Heart exam reveals first and second heart sounds. No gallop. No murmur. No rub. Abdomen is soft. Exam of the extremities did not reveal any edema. Peripheral pulses are felt. LABS: Show a hemoglobin of 9.9, platelet count is 280. D-dimer is elevated. V/Q scan is abnormal. Creatinine is 1.7. ASSESSMENT: Acute pulmonary embolism. PLAN: I will continue the patient on IV heparin, switch her to Eliquis tomorrow and obtain a 2D echo. Further adjustments to therapy as tolerated. MMODL / IJN: [id number] /
[2019-11-26 11:45] LABS: C Reactive Protein 148.7 mg/L (<10.0)
[2019-11-26] MEDS ORDERED: ERTAPENEM 1 GM in SODIUM CHLORIDE 0.9% 50 ML IVPB SCH (12:00)
--- NOTE | 2019-11-26 12:00 | ECHOF ---
Referral Reason:assess lvf MEASUREMENTS -------- HEIGHT: 165.1 cm WEIGHT: 102.5 kg BP: IVSd: 1.2 cm (0.6 - 1.1) LVIDd: 2.8 cm (3.9 - 5.3) LVPWd: 1.1 cm (0.6 - 1.1) IVSs: 1.3 cm LVIDs: 2.3 cm LVPWs: 1.3 cm Ao Diam: 2.7 cm (2.0 - 3.7) AV Cusp: 1.4 cm (1.5 - 2.6) LA Diam: 2.7 cm (2.7 - 3.8) MV E Ricardo: 0.75 m/s MV DecT: 144 ms MV A Ricardo: 0.67 m/s MV E/A Ratio: 1.13 RAP: 5.00 mmHg RVSP: 9.35 mmHg FINDINGS -------- Resting tachycardia (HR>100bpm). This was a technically difficult study with suboptimal views. The left ventricular size is normal. Left ventricular wall thickness is normal. Overall left vent ricular systolic function is mild-moderately impaired with, an EF between 40 - 45 %. Basal inferior LV wall motion is hypokinetic. The RV was not well visualized. The left atrial size is normal. The right atrium was not well visualized. Lumason used The aortic valve is trileaflet and appears structurally normal. The mitral valve is normal. There is trace mitral regurgitation. The tricuspid valve appears structurally normal. Trace tricuspid regurgitation present. Right bartolo tricular systolic pressure is normal at < 35 mmHg. There is no pulmonic regurgitation present. The aortic root size is normal. IVC Not well visulized. There is no pericardial effusion. CONCLUSIONS -------- 1. Resting tachycardia (HR>100bpm). 2. This was a technically difficult study with suboptimal views. 3. The left ventricular size is normal. 4. Left ventricular wall thickness is normal. 5. Overall left ventricular systolic function is mild-moderately impaired with, an EF between 40 - 45 %. 6. Basal inferior LV wall motion is hypokinetic. 7. The RV was not well visualized. 8. The left atrial size is normal. 9. The right atrium was not well visualized. 10. Lumason used 11. The aortic valve is trileaflet and appears structurally normal. 12. The mitral valve is normal. 13. There is trace mitral regurgitation. 14. The tricuspid valve appears structurally normal. 15. Trace tricuspid regurgitation present. 16. Right ventricular systolic pressure is normal at < 35 mmHg. 17. There is no pulmonic regurgitation present. 18. The aortic root size is normal. 19. IVC Not well visulized. 20. There is no pericardial effusion. INTERVENTIONAL RADIOLOGY TECHNOLOGIST: Tabby Davila RDCS
[2019-11-26] MEDS: HEPARIN SOD,PORK IN 0.45% NACL 25,000 UNIT in 0.45% NACL 1 250ML.BAG IV SCH (16:00)
[2019-11-26] MEDS: NITROFURANTOIN MONOHYD/M-CRYST 100 MG CAP PO SCH ×2 (16:01→21:00)
--- NOTE | 2019-11-26 16:27 | P.HPIM ---
History of Present Illness H&P Date: 11/26/19 Chief Complaint: Weakness short of breath History of presenting complaint: This is a pleasant 64-year-old patient of Dr. Reuben Chino. Chronic stable medical conditions include schizoaffective disorder, chronic kidney disease stage III, hypertension, GERD. Patient was here in the hospital from November 22 through November 24. Discharged yesterday. Patient's had present to the ER with 2 weeks of nausea vomiting not able to keep anything down some diarrhea abdominal pain. Denies any fever and chills. Tired rundown. Patient appears to be rather distant during the history giving. Not been able to eat much. ER physician related at all from time she says she is fine though she'll often have other contradictory complaints. She was able to eat only a very small amount in the ER the last if she ate she said yes. Admitted with-acute gastroenteritis. Started on IV fluids and Flagyl and ciprofloxacin. Seen by psychiatry. Diagnosed with-schizoaffective disorder. No change in medications. Nitrofurantoin was added for the ESBL/E. coli. Yesterday morning she was doing much better. Tolerating a diet. Comfortable. Smiling. Nitrofurantoin was started today. Discussed with the patient. Patient was therefore discharged. Patient then went home. Started feeling weak and tired. [place] weak in the legs. Was feeling a bit short of breath. Discussed with the ER physician. Doppler ultrasound lower extremity followed by a VQ scan showed DVT and a moderate probability of PE. Patient started on IV heparin. No chest pain. No fever no chills. A bit tired. Review of systems: GEN.: Weak tired EYES: None HEENT: None NECK: None RESPIRATORY: Shortness of breath CARDIOVASCULAR: None GASTROINTESTINAL: No diarrhea GENITOURINARY: None MUSCULOSKELETAL: None LYMPHATICS: None HEMATOLOGICAL: None PSYCHIATRY: Some depression NEUROLOGICAL: None Past medical history to include: Schizoaffective disorder, hypertension, GERD, chronic kidney disease stage III Social history: Denies smoking or alcohol. Lives with Family history: Reviewed, noncontributory to presentation Physical examination: VITAL SIGNS: 97.2, 113, 18, heart disease and 32/98, 99% on 2 L GENERAL: BMI 37.6, propped up in bed, slightly short of breath, EYES: Pupils equal. Conjunctiva normal. HEENT: External appearance of nose and ears normal, oral cavity-dry. NECK: JVD not raised; masses not palpable. HEART: First and second heart sounds are normal; no edema. LUNGS: Respiratory rate increased, decreased breath sounds ABDOMEN: Soft, mild tenderness, liver spleen not palpable, no masses palpable. PSYCH: Able to answer questions NEUROLOGICAL: Cranial nerves grossly intact; no facial asymmetry, power and sensation grossly intact. LYMPHATICS: No lymph nodes palpable in the axilla and neck INVESTIGATIONS, reviewed in the clinical context: White count 13.2 hemoglobin 9.9 platelets 08/15/2019 bun 25 creatinine 1.75 2-D echocardiogram-EF 40-45% with inferior basal wall hypokinetic. Doppler ultrasound of the left leg shows thrombus within the left external iliac vein, common femoral vein, deep femoral vein, and proximal femoral vein. Previous testing: Patient's white count 16.1 and hemoglobin 12.2 potassium 4.2 creatinine was 1.551 11/23/2019 Assessment: -Acute extensive DVT in the left lower extremity and acute pulmonary embolism, POA -Schizoaffective disorder -Essential hypertension -Acute UTI from cystitis from E. coli/ESBL. -GERD -Patient has no acute kidney injury. -Patient loss admission hemoglobin initially was 12.2 it was 10.5 and she left. Likely it was elevated from hemoconcentration initially because of gastroenteritis. -Suspect normocytic anemia secondary to chronic kidney disease -Chronic kidney disease stage III likely nephrosclerosis, with hypertension -IV heparin monitoring -Chronic systolic heart failure from EF of 40-45% likely from hypertensive heart disease Plan: Patient started on IV heparin. Patient is bit anxious. Did give 1 dose of Ativan. Patient was reassured.. We'll also get a nephrology opinion. And do a renal ultrasound. Give IV fluids. Repeat labs in the morning. We'll also get a vascular consultation. Given that the GFR in the last 3 days is around 1.5, repeat the creatinine tomorrow morning and based on that will decide the dose of eliquis. Specially there is a component of acute kidney injury. Past Medical History Past Medical History: Hypertension Additional Past Medical History / Comment(s): just discharged 11/24/2019 for uti History of Any Multi-Drug Resistant Organisms: ESBL Date of last positivie culture/infection: 11/23/19 MDRO Source:: ESBL URINE Past Surgical History: Section Past Anesthesia/Blood Transfusion Reactions: No Reported Reaction Past Psychological History: Bipolar Smoking Status: Never smoker Past Alcohol Use History: None Reported Past Drug Use History: None Reported Medications and Allergies Home Medications Medication Instructions Recorded Confirmed Type Cholecalciferol [Vitamin D3 (25 5,000 unit PO DAILY 11/23/19 11/25/19 History Mcg = 1000 Iu)] Ferrous Sulfate [Iron (65 MG 325 mg PO DAILY 11/23/19 11/25/19 History Elemental)] Haloperidol [Haldol] 1 mg PO HS 11/23/19 11/25/19 History Omeprazole [PriLOSEC] 40 mg PO DAILY 11/23/19 11/25/19 History amLODIPine [Norvasc] 2.5 mg PO DAILY 11/23/19 11/25/19 History lamoTRIgine [LaMICtal] 200 mg PO DAILY 11/23/19 11/25/19 History Levofloxacin [Levaquin] 250 mg PO Q24H #2 tab 11/25/19 11/25/19 Rx Nitrofurantoin Macrocrystal 50 mg PO BID #14 capsule 11/25/19 11/25/19 Rx [Nitrofurantoin] metroNIDAZOLE [Flagyl] 500 mg PO TID #6 tab 11/25/19 11/25/19 Rx Allergies Allergy/AdvReac Type Severity Reaction Status Date / Time No Known Allergies Allergy Verified 11/25/19 18:10 Physical Exam Vitals: Vital Signs Temp Pulse Pulse Resp BP BP Pulse Ox 11/26/19 04:00 98.2 F 98 18 120/81 99 11/25/19 23:40 97.8 F 97 18 111/84 97 11/25/19 21:49 97.9 F 116 H 17 135/85 99 11/25/19 21:21 98.6 F 106 H 18 107/69 98 11/25/19 19:12 99.0 F 112 H 18 106/80 97 11/25/19 18:00 134 H 18 97 11/25/19 17:53 100.3 F H 11/25/19 17:02 26 H 11/25/19 16:57 97 11/25/19 16:56 98.2 F 159 H 26 H 149/107 85 L Intake and Output 11/25/19 11/26/19 11/26/19 22:59 06:59 14:59 Intake Total 122.317 202.457 Output Total 300 Balance -177.683 202.457 Intake: Intake, IV Titration 122.317 82.457 Amount Heparin Sod,Pork in 0.45% 122.317 82.457 NaCl 25,000 unit In 0.45 % NaCl 1 250ml.bag @ 18 UNITS/KG/HR 17.309 mls/hr IV .[id number] [facility] Rx#: [id number] Oral 120 Output: Urine 300 Other: Weight 96.162 kg 102.6 kg Results CBC & Chem 7: 11/26/19 07:28 11/25/19 17:46 Labs: Abnormal Lab Results - Last 24 Hours (Table) 11/25/19 11/25/19 11/25/19 Range/Units 17:46 17:46 17:46 WBC 16.1 H (3.8-10.6) k/uL RBC (3.80-5.40) m/uL Hgb (11.4-16.0) gm/dL Hct (34.0-46.0) % MCHC (31.0-37.0) g/dL Neutrophils # 14.5 H (1.3-7.7) k/uL Lymphocytes # 0.4 L (1.0-4.8) k/uL APTT (22.0-30.0) sec D-Dimer >35.20 H (<0.60) mg/L FEU Chloride 110 H (98-107) mmol/L Carbon Dioxide 20 L (22-30) mmol/L BUN 25 H (7-17) mg/dL Creatinine 1.75 H (0.52-1.04) mg/dL Glucose 140 H (74-99) mg/dL Magnesium 1.4 L (1.6-2.3) mg/dL Total Protein 6.1 L (6.3-8.2) g/dL Albumin 3.1 L (3.5-5.0) g/dL Urine Protein (Negative) Ur Leukocyte Esterase (Negative) Urine Bacteria (None) /hpf 11/25/19 11/26/19 11/26/19 Range/Units 18:35 01:13 07:27 WBC (3.8-10.6) k/uL RBC (3.80-5.40) m/uL Hgb (11.4-16.0) gm/dL Hct (34.0-46.0) % MCHC (31.0-37.0) g/dL Neutrophils # (1.3-7.7) k/uL Lymphocytes # (1.0-4.8) k/uL APTT >200.0 H* >200.0 H* (22.0-30.0) sec D-Dimer (<0.60) mg/L FEU Chloride (98-107) mmol/L Carbon Dioxide (22-30) mmol/L BUN (7-17) mg/dL Creatinine (0.52-1.04) mg/dL Glucose (74-99) mg/dL Magnesium (1.6-2.3) mg/dL Total Protein (6.3-8.2) g/dL Albumin (3.5-5.0) g/dL Urine Protein 1+ H (Negative) Ur Leukocyte Esterase Moderate H (Negative) Urine Bacteria Rare H (None) /hpf 11/26/19 Range/Units 07:28 WBC 13.2 H (3.8-10.6) k/uL RBC 3.46 L (3.80-5.40) m/uL Hgb 9.9 L D (11.4-16.0) gm/dL Hct 32.7 L (34.0-46.0) % MCHC 30.2 L (31.0-37.0) g/dL Neutrophils # 11.1 H (1.3-7.7) k/uL Lymphocytes # (1.0-4.8) k/uL APTT (22.0-30.0) sec D-Dimer (<0.60) mg/L FEU Chloride (98-107) mmol/L Carbon Dioxide (22-30) mmol/L BUN (7-17) mg/dL Creatinine (0.52-1.04) mg/dL Glucose (74-99) mg/dL Magnesium (1.6-2.3) mg/dL Total Protein (6.3-8.2) g/dL Albumin (3.5-5.0) g/dL Urine Protein (Negative) Ur Leukocyte Esterase (Negative) Urine Bacteria (None) /hpf Thrombosis Risk Factor Assmnt - Choose All That Apply Each Risk Factor Represents 2 Points: Age 61-74 years Thrombosis Risk Factor Assessment Total Risk Factor Score: 2 Thrombosis Risk Factor Assessment Level: Low Risk
[2019-11-26] MEDS: HALOPERIDOL 1 MG TAB PO SCH (21:00)
--- NOTE | 2019-11-27 00:06 | P.CONS ---
History of Present Illness - Reason for Consult Consult date: 11/26/19 UTI Requesting physician: Gage Peck - Chief Complaint Weakness and fall x few days - History of Present Illness Patient is a 64-year-old female who was recently admitted at this facility and treated for urinary tract infection patient was discharged yesterday on oral Flagyl and Cipro upon arriving home from hospital patient fell leaving the car patient fell forward catching herself with her arms denies having any trauma to the head or neck or loss of consciousness the patient was feeling very weak patient was unable to get out of the couch with the symptom had the patient was brought back to [facility] ER on arrival to the ER patient had did have a low-grade fever 100.3 F she did have a little white count 16,000 kothari PCR was negative UA shows moderate leukocyte esterase chest x-ray no definite focal consolidation patient was started on Zosyn admitted to hospital infectious was consulted for further management of antibiotic therapy patient time evaluation at this morning has been under good historian denies having any headache or URI symptoms no chest pain or shortness with minimal cough no abdominal pain when asked for any symptoms he did have some difficulty urination but denies significant burning she has been complaining of diarrhea as well as the nurses aide mentioned patient has multiple loose stool last night and 2 this morning review of her urine culture done on last admission did show she grew ESBL E. coli. Review of Systems Positive point has been mentioned in HPI complete review could not be obtained because of underlying mental status Past Medical History Past Medical History: Hypertension Additional Past Medical History / Comment(s): just discharged 11/24/2019 for uti History of Any Multi-Drug Resistant Organisms: ESBL Year Discovered:: 11/23/19 MDRO Source:: ESBL URINE Past Surgical History: Section Past Anesthesia/Blood Transfusion Reactions: No Reported Reaction Past Psychological History: Bipolar Smoking Status: Never smoker Past Alcohol Use History: None Reported Past Drug Use History: None Reported Medications and Allergies Home Medications Medication Instructions Recorded Confirmed Type Cholecalciferol [Vitamin D3 (25 5,000 unit PO DAILY 11/23/19 11/25/19 History Mcg = 1000 Iu)] Ferrous Sulfate [Iron (65 MG 325 mg PO DAILY 11/23/19 11/25/19 History Elemental)] Haloperidol [Haldol] 1 mg PO HS 11/23/19 11/25/19 History Omeprazole [PriLOSEC] 40 mg PO DAILY 11/23/19 11/25/19 History amLODIPine [Norvasc] 2.5 mg PO DAILY 11/23/19 11/25/19 History lamoTRIgine [LaMICtal] 200 mg PO DAILY 11/23/19 11/25/19 History Levofloxacin [Levaquin] 250 mg PO Q24H #2 tab 11/25/19 11/25/19 Rx Nitrofurantoin Macrocrystal 50 mg PO BID #14 capsule 11/25/19 11/25/19 Rx [Nitrofurantoin] metroNIDAZOLE [Flagyl] 500 mg PO TID #6 tab 11/25/19 11/25/19 Rx Allergies Allergy/AdvReac Type Severity Reaction Status Date / Time No Known Allergies Allergy Verified 11/25/19 18:10 Physical Exam Vitals: Vital Signs Temp Pulse Pulse Resp BP BP Pulse Ox 11/26/19 11:25 97.6 F 123 H 18 116/73 98 11/26/19 07:40 97.2 F L 113 H 18 132/98 99 11/26/19 04:00 98.2 F 98 18 120/81 99 11/25/19 23:40 97.8 F 97 18 111/84 97 11/25/19 21:49 97.9 F 116 H 17 135/85 99 11/25/19 21:21 98.6 F 106 H 18 107/69 98 11/25/19 19:12 99.0 F 112 H 18 106/80 97 11/25/19 18:00 134 H 18 97 11/25/19 17:53 100.3 F H 11/25/19 17:02 26 H 11/25/19 16:57 97 11/25/19 16:56 98.2 F 159 H 26 H 149/107 85 L Intake and Output 11/26/19 11/26/19 11/26/19 06:59 14:59 22:59 Intake Total 122.317 687.683 Output Total 300 Balance -177.683 687.683 Intake: Intake, IV Titration 122.317 227.683 Amount Heparin Sod,Pork in 0.45% 122.317 127.683 NaCl 25,000 unit In 0.45 % NaCl 1 250ml.bag @ 18 UNITS/KG/HR 17.309 mls/hr IV .[id number] [facility] Rx#: [id number] Piperacillin-Tazobactam 3 100 .375 gm In Sodium Chloride 0.9% 100 ml @ 200 mls/hr IVPB ONCE STA Rx#:[id number] Oral 460 Output: Urine 300 Other: # Voids 1 Weight 102.6 kg GENERAL DESCRIPTION: Elderly female male lying in bed, no distress. No tachypnea or accessory muscle of respiration use. HEENT: Shows Pallor , no scleral icterus. Oral mucous membrane is dry. NECK: Trachea central, no thyromegaly. LUNGS: Unlabored breathing. Decreased breath sound at the base. No wheeze or crackle. HEART: S1, S2, regular rate and rhythm. ABDOMEN: Soft, no tenderness , guarding or rigidity EXTREMITIES: No edema of feet. SKIN: No rash, no masses palpable. NEUROLOGICAL: The patient is awake, alert, oriented x2, mood and affect normal. Results CBC & Chem 7: 11/26/19 07:28 11/25/19 17:46 Labs: Abnormal Lab Results - Last 24 Hours (Table) 11/25/19 11/25/19 11/25/19 Range/Units 17:46 17:46 17:46 WBC 16.1 H (3.8-10.6) k/uL RBC (3.80-5.40) m/uL Hgb (11.4-16.0) gm/dL Hct (34.0-46.0) % MCHC (31.0-37.0) g/dL Neutrophils # 14.5 H (1.3-7.7) k/uL Lymphocytes # 0.4 L (1.0-4.8) k/uL APTT (22.0-30.0) sec D-Dimer >35.20 H (<0.60) mg/L FEU Chloride 110 H (98-107) mmol/L Carbon Dioxide 20 L (22-30) mmol/L BUN 25 H (7-17) mg/dL Creatinine 1.75 H (0.52-1.04) mg/dL Glucose 140 H (74-99) mg/dL Magnesium 1.4 L (1.6-2.3) mg/dL C-Reactive Protein (<10.0) mg/L Total Protein 6.1 L (6.3-8.2) g/dL Albumin 3.1 L (3.5-5.0) g/dL Urine Protein (Negative) Ur Leukocyte Esterase (Negative) Urine Bacteria (None) /hpf 11/25/19 11/26/19 11/26/19 Range/Units 18:35 01:13 07:27 WBC (3.8-10.6) k/uL RBC (3.80-5.40) m/uL Hgb (11.4-16.0) gm/dL Hct (34.0-46.0) % MCHC (31.0-37.0) g/dL Neutrophils # (1.3-7.7) k/uL Lymphocytes # (1.0-4.8) k/uL APTT >200.0 H* >200.0 H* (22.0-30.0) sec D-Dimer (<0.60) mg/L FEU Chloride (98-107) mmol/L Carbon Dioxide (22-30) mmol/L BUN (7-17) mg/dL Creatinine (0.52-1.04) mg/dL Glucose (74-99) mg/dL Magnesium (1.6-2.3) mg/dL C-Reactive Protein (<10.0) mg/L Total Protein (6.3-8.2) g/dL Albumin (3.5-5.0) g/dL Urine Protein 1+ H (Negative) Ur Leukocyte Esterase Moderate H (Negative) Urine Bacteria Rare H (None) /hpf 11/26/19 11/26/19 Range/Units 07:27 07:28 WBC 13.2 H (3.8-10.6) k/uL RBC 3.46 L (3.80-5.40) m/uL Hgb 9.9 L D (11.4-16.0) gm/dL Hct 32.7 L (34.0-46.0) % MCHC 30.2 L (31.0-37.0) g/dL Neutrophils # 11.1 H (1.3-7.7) k/uL Lymphocytes # (1.0-4.8) k/uL APTT (22.0-30.0) sec D-Dimer (<0.60) mg/L FEU Chloride (98-107) mmol/L Carbon Dioxide (22-30) mmol/L BUN (7-17) mg/dL Creatinine (0.52-1.04) mg/dL Glucose (74-99) mg/dL Magnesium (1.6-2.3) mg/dL C-Reactive Protein 148.7 H (<10.0) mg/L Total Protein (6.3-8.2) g/dL Albumin (3.5-5.0) g/dL Urine Protein (Negative) Ur Leukocyte Esterase (Negative) Urine Bacteria (None) /hpf Assessment and Plan Assessment: patient presented to hospital with generalized weakness fall which is likely multifactorial in this patient on presented hospital did have a low-grade fever and elevated white count with a recent diagnosis of UTI and those culture has been finalized with ESBL E. coli failing outpatient oral Cipro, the patient also have diarrhea with exposure to antibiotic will need to rule out C. difficile colitis causing some of her symptoms (1) ESBL (extended spectrum beta-lactamase) producing bacteria infection Current Visit: Yes Status: Acute Code(s): A49.9 - BACTERIAL INFECTION, UNSPECIFIED; Z16.12 - EXTENDED SPECTRUM BETA LACTAMASE (ESBL) RESISTANCE SNOMED Code(s): 971241997 (2) Urinary tract infection Current Visit: Yes Status: Acute Code(s): N39.0 - URINARY TRACT INFECTION, SITE NOT SPECIFIED SNOMED Code(s): 01459928 Plan: 1-discontinue Zosyn 2-start the patient on Invanz 1 g daily to cover for ESBL E. coli while waiting for repeat urine culture to finalize 3-check a stool for C. difficile and treat if positive 4-we will add Questran for symptomatic relief We will follow on clinical condition and cultures to further adjust medication if needed Thank you for this consultation we will follow the patient along with you
--- NOTE | 2019-11-27 00:46 | CONS ---
CONSULTATION This is a 64-year-old, pleasant female. She has been admitted to the hospital with history of fall at home. The patient was brought in. The patient was __treated___ of UTI on 11/23/2019. The patient also had some diarrhea and no nausea or vomiting. Patient had an ultrasound of the leg which shows left leg shows there is echogenic thrombus within the external iliac vein, common femoral vein and the calf vein appears to be compressible and the diagnosis was made of acute and chronic DVT left leg. The patient has no previous history of DVT. No history of trauma. The patient has no history of pain or any numbness in the left lower extremity. MEDICAL HISTORY: History of hypertension controlled with medication. SURGICAL HISTORY: Patient had done in the past. PAST PSYCHOLOGICAL HISTORY: History of bipolar. No history of smoking. PHYSICAL EXAMINATION: On examination, patient was seen in her room, lying comfortably in bed. Vital signs stable. NECK: Supple. Trachea central. CHEST: Clear to auscultation. ABDOMEN: Soft. Femoral pulses are palpable. There is no evidence of any calf tenderness. No evidence of varicosity. No evidence of any phlegmasia. Her dorsalis pedis is palpable. IMPRESSION: Deep venous thrombosis, acute chronic deep venous thrombosis left lower extremity. There is no evidence of any vascular compromise. The patient is on anticoagulation. Recommend to have a knee-high SUMAYA hose. We will follow with you. YOUNG / CAILIN: [id number] / MTDD
[2019-11-27] MEDS: HEPARIN SOD,PORK IN 0.45% NACL 25,000 UNIT in 0.45% NACL 1 250ML.BAG IV SCH (02:43)
[2019-11-27] MEDS: ACETAMINOPHEN TAB 325 MG TAB PO PRN (03:14)
[2019-11-27 06:29] LABS: Basophils # (A) 0.1 k/uL (0-0.2); Basophils % (A) 1 %; Eosinophils # (A) 0.1 k/uL (0-0.7); Eosinophils % (A) 1 %; HCT 22.4 % (34.0-46.0); Hypochromasia Marked; Lymphocytes # (A) 1.3 k/uL (1.0-4.8); Lymphocytes % (A) 7 %; MCH 28.9 pg (25.0-35.0); MCHC 29.9 g/dL (31.0-37.0); MCV 96.7 fL (80.0-100.0); Mean Platelet Volume 7.7; Monocytes # (A) 0.9 k/uL (0-1.0); Monocytes % (A) 5 %; Neutrophils # (A) 15.6 k/uL (1.3-7.7); Neutrophils % (A) 86 %; Platelet Count 313 k/uL (150-450); RBC 2.31 m/uL (3.80-5.40); RDW 14.7 % (11.5-15.5); WBC 18.2 k/uL (3.8-10.6)
[2019-11-27 06:35] LABS: HGB 6.7 gm/dL (11.4-16.0)
[2019-11-27 06:46] LABS: Calcium 8.2 mg/dL (8.4-10.2); Potassium 4.5 mmol/L (3.5-5.1)
[2019-11-27] MEDS: LACTATED RINGERS 1,000 ML IV SCH (06:47)
[2019-11-27] MEDS: PANTOPRAZOLE 40 MG TABLET PO SCH (06:55)
[2019-11-27] MEDS ORDERED: MIDAZOLAM 2 MG/2 ML VIAL ONE (07:36)
[2019-11-27] MEDS ORDERED: SODIUM BICARB 8.4% 50 ML SYR (1 MEQ/ML) ONE (07:49)
[2019-11-27 07:50] LABS: Glucose,Whole Blood 136 mg/dL (75-99)
[2019-11-27 08:02] LABS: Glucose,Whole Blood 111 mg/dL (75-99)
[2019-11-27] MEDS ORDERED: PROPOFOL 100 ML IV ONE (08:20)
--- NOTE | 2019-11-27 08:20 | XR ---
"EXAMINATION TYPE: XR chest 1V portable DATE OF EXAM: 11/27/2019 COMPARISON: 11/25/2019 HISTORY: Endotracheal tube placement TECHNIQUE: Single frontal view of the chest is obtained. FINDINGS: The endotracheal tube is placed in the right mainstem bronchus and should be retracted tricia roximately 2.5 to 3 cm for optimal placement. No focal consolidation, pleural effusion or pneumothora x. Strand-like atelectasis is redemonstrated at the lung bases with low lung volumes. Stable cardiac mediastinal silhouette.. IMPRESSION: Right mainstem intubation. Recommendation is for retraction of the endotracheal tube 2.5 -3 cm. A [place] level critical message alert has been initiated for Gage Peck MD via the [employer] 36 0 | Critical Results System on 11/27/2019 8:18 AM. This message alert has been sent to Gage Peck MD via the preferences provided by the clinician for the receipt of Radiology Critical Findings. [facility] ID [id number]."
[2019-11-27] MEDS ORDERED: NOREPINEPHRIN 4 MG-0.9% NS PMX 4 MG/250 ML ML IV ONE (08:26)
[2019-11-27] MEDS ORDERED: CISATRACURIUM 2 MG/ML 5 ML VIAL IV ONE (08:32)
[2019-11-27 08:50] LABS: HCT 21.2 % (34.0-46.0); Hypochromasia Marked; MCH 28.8 pg (25.0-35.0); Macrocytosis Slight; Mean Platelet Volume 8.4; Platelet Count 296 k/uL (150-450); RBC 2.07 m/uL (3.80-5.40); RDW 14.9 % (11.5-15.5)
[2019-11-27 08:59] LABS: MCV 102.6 fL (80.0-100.0)
[2019-11-27 09:00] LABS: Calcium 7.8 mg/dL (8.4-10.2); Potassium 4.8 mmol/L (3.5-5.1); Total Bilirubin 0.3 mg/dL (0.2-1.3); Total Protein 4.2 g/dL (6.3-8.2)
[2019-11-27 09:11] LABS: ABG Base Excess -14.2 mmol/L; ABG HCO3 13 mmol/L (21-25); ABG PCO2 29 mmHg (35-45); ABG PH 7.26 (7.35-7.45); ABG PO2 >400 mmHg (83-108); ABG TCO2 14 mmol/L (19-24)
[2019-11-27] MEDS ORDERED: SODIUM CHLORIDE 0.9% 3,000 ML IV ONE (09:11)
[2019-11-27] MEDS ORDERED: SODIUM BICARB 8.4% 50 ML SYR (1 MEQ/ML) IV STA (09:12)
[2019-11-27] MEDS ORDERED: PROPOFOL 1,000 MG in EMPTY BAG 1 BAG IV SCH (09:15)
[2019-11-27] MEDS ORDERED: SODIUM CHLORIDE 0.9% 50 ML with VASOPRESSIN 20 UNIT IVPB SCH ×2 (09:15)
[2019-11-27] MEDS ORDERED: SODIUM CHLORIDE 0.9% 1,000 ML IV SCH (09:15)
[2019-11-27 09:20] LABS: Allen Test Performed? no
[2019-11-27] MEDS: SODIUM BICARBONATE TAB 650 MG TAB PO SCH ×2 (09:35→16:37)
[2019-11-27] MEDS: NOREPINEPHRINE 8 MG in SODIUM CHLORIDE 0.9% 250 ML IV SCH ×3 (09:36→16:37)
[2019-11-27 09:48] LABS: Band Neutrophils % 10 %; Eosinophils # (M) 0.23 k/uL (0-0.7); Metamyelocytes % 4 %; Monocytes # (M) 0.46 k/uL (0-1.0); Myelocytes % 6 %; Neutrophils % (M) 63 %; Nucleated Red Blood Cells 1 /100 WBC (0-0); Promyelocytes # (M) 0.23 k/uL (0); Promyelocytes % 1 %; Total Cells Counted 200
[2019-11-27 09:49] LABS: Lymphocytes # (M) 3.42 k/uL (1.0-4.8); Metamyelocytes # (M) 0.91 k/uL (0); Myelocytes # (M) 1.37 k/uL (0); WBC 22.8 k/uL (3.8-10.6)
[2019-11-27 09:50] LABS: Poikilocytosis (M) Present; Polychromasia Present; Toxic Granulation Present
--- NOTE | 2019-11-27 09:57 | XR ---
EXAMINATION TYPE: XR chest 1V portable DATE OF EXAM: 11/27/2019 COMPARISON: Prior chest x-ray 11/27/2019 at earlier time HISTORY: Central venous catheter placement TECHNIQUE: Single frontal view of the chest is obtained. FINDINGS: There is been interval repositioning of endotracheal tube, distal tip is approximately 17 mm from the selnea. Right subclavian central venous catheter has been placed in the interval, distal tip is within the right atrium. There is no evident pneumothorax. NG tube has been placed, distal tip is overlying the region of the stomach. No evident effusion. Patient is rotated. Lung volumes are lo w. IMPRESSION: No evident complication status post tube placement, central venous catheter placement
[2019-11-27] MEDS ORDERED: SODIUM CHLORIDE 0.9% 1,000 ML IV ONE (10:02)
[2019-11-27] MEDS ORDERED: LORazepam 2 MG/ML INJ ONE (10:07)
[2019-11-27] MEDS ORDERED: HYDROCORTISONE SUCCINATE 100 MG/2 ML VIAL ONE (10:08)
[2019-11-27] MEDS ORDERED: HYDROCORTISONE SUCCINATE 100 MG/2 ML VIAL IV STA ×2 (10:08→10:11)
[2019-11-27 10:26] LABS: Hypochromasia Marked; MCH 29.9 pg (25.0-35.0); Mean Platelet Volume 8.4; Platelet Count 265 k/uL (150-450); RBC 1.86 m/uL (3.80-5.40); RDW 15.2 % (11.5-15.5); Reticulocyte % 2.3 % (0.5-2.0); WBC 31.9 k/uL (3.8-10.6)
[2019-11-27 10:30] LABS: HGB 5.6 gm/dL (11.4-16.0)
[2019-11-27 10:31] LABS: MCV 96.6 fL (80.0-100.0)
[2019-11-27 11:06] LABS: Band Neutrophils % 9 %; Lymphocytes # (M) 2.23 k/uL (1.0-4.8); Metamyelocytes # (M) 0.64 k/uL (0); Metamyelocytes % 2 %; Myelocytes % 5 %; Neutrophils % (M) 73 %; Nucleated Red Blood Cells 0 /100 WBC (0-0); Total Cells Counted 200
--- NOTE | 2019-11-27 11:39 | CT ---
EXAMINATION TYPE: CT brain wo con DATE OF EXAM: 11/27/2019 COMPARISON: None INDICATION: Altered mental status, intracranial bleed DLP: 1098.4 mGycm, Automated exposure control for dose reduction was used. CONTRAST: None CT of the brain is performed utilizing 3 mm thick sections through the posterior fossa and 3 mm thick sections through the remaining calvarium. Study is performed within 24 hours of arrival to the hosp [facility]. No abnormal hyperdensity is present to suggest an acute intracranial hemorrhage. No mass lesion is evident. No acute infarcts are evident. Minimal periventricular white matter hypodensity is present compatible with chronic white matter ischemic changes. Ventricles and sulci are mildly prominent for the patient age. Paranasal sinuses and mastoid air cells within the [id number] are clear. Mild hyperostosis frontal is internus is present. An oral gastric tube may be present. IMPRESSIONS: 1. Atrophy with minimal periventricular white matter ischemic type changes. 2. No acute intracranial process.
[2019-11-27] MEDS: lamoTRIgine 100 MG TAB PO SCH (11:40)
[2019-11-27] MEDS: CHOLECALCIFEROL 1,000 UNIT TAB PO SCH (11:40)
[2019-11-27] MEDS: FERROUS SULFATE 325 MG TAB PO SCH (11:40)
[2019-11-27 11:49] LABS: Erythrocyte Sedimentation Rate 18 mm/hr (0-20)
--- NOTE | 2019-11-27 12:43 | P.CNPUL ---
History of Present Illness Consult date: 11/27/19 Requesting physician: Gage Peck Reason for consult: other (Cardiac arrest) Chief complaint: Cardiac arrest History of present illness: This is a 64-year-old female with history of multiple medical problems including recent diagnosis of urinary tract infection, patient was discharged 2 days ago . Patient was discharged on oral Flagyl and ciprofloxacin. However at home the patient was complaining of weakness, unable to get out of the couch, and she was brought back to the emergency room at [facility]. Patient was noted to have fever with a temp of 100.3, she had leukocytosis, tested negative for kothari virus PCR. Her urinalysis showed evidence of urinary tract inf ection, and apparently based on the cultures she had ESBL E. coli. Patient was seen by infectious disease on consultation, and she was placed on ivanz, and she was resumed on her usual medications. Apparently this morning the rapid response team was called to see the patient, she became suddenly unresponsive, and upon arrival the patient was in pulseless electrical activity/pea .CPR was started. Lasted for a total of 8-10 minutes, patient received epinephrine during the code. Patient had spontaneous return of circulation, however she was hypotensive, intubated, and she was transferred to the ICU. I saw the patient as soon as she arrived to the intensive care unit, she was hypotensive, and she was mechanically ventilated. Patient was noted to be restless agitated, but not responding to any stimuli. Patient was on norepinephrine and IV fluid boluses, and I went ahead and placed a right subclavian central line. And a right brachial arterial line. Patient was placed on fluid boluses, received almost 4 L of fluid boluses in the form of 0.9 normal saline. She was given norepinep hrine, and is being titrated. And I had to add vasopressin. Chest x-ray showed endotracheal tube to be in the right position, right subclavian central line was in the proper position, her nasogastric tube was noted to be in the stomach. There was no evidence of effusion or infiltrate, but there was minimal left basilar atelectasis. CT of the brain showed minimal periventricular white matter ischemic changes no acute intracranial process was noted. Hemoglobin was noted to be 5.6, and I ordered 2 units of packed RBCs to be transfused as soon as possible. ABG post intubation showed a pO2 of about 400 pCO2 of 29 pH of 7.26, hence sodium bicarb was given 1 amp IV push 1. Troponin was noted to be less than 0.012. Echocardiogram done yesterday showed moderately impaired LV function with ejection fraction of 40-45%. Right-sided pressures were noted to be normal. Review of Systems ROS unobtainable: due to endotracheal tube Past Medical History Past Medical History: Hypertension Additional Past Medical History / Comment(s): just discharged 11/24/2019 for uti History of Any Multi-Drug Resistant Organisms: ESBL Date of last positivie culture/infection: 11/23/19 MDRO Source:: ESBL URINE Past Surgical History: Section Past Anesthesia/Blood Transfusion Reactions: No Reported Reaction Past Psychological History: Bipolar Smoking Status: Never smoker Past Alcohol Use History: None Reported Past Drug Use History: None Reported Medications and Allergies Home Medications Medication Instructions Recorded Confirmed Type Cholecalciferol [Vitamin D3 (25 5,000 unit PO DAILY 11/23/19 11/25/19 History Mcg = 1000 Iu)] Ferrous Sulfate [Iron (65 MG 325 mg PO DAILY 11/23/19 11/25/19 History Elemental)] Haloperidol [Haldol] 1 mg PO HS 11/23/19 11/25/19 History Omeprazole [PriLOSEC] 40 mg PO DAILY 11/23/19 11/25/19 History amLODIPine [Norvasc] 2.5 mg PO DAILY 11/23/19 11/25/19 History lamoTRIgine [LaMICtal] 200 mg PO DAILY 11/23/19 11/25/19 History Levofloxacin [Levaquin] 250 mg PO Q24H #2 tab 11/25/19 11/25/19 Rx Nitrofurantoin Macrocrystal 50 mg PO BID #14 capsule 11/25/19 11/25/19 Rx [Nitrofurantoin] metroNIDAZOLE [Flagyl] 500 mg PO TID #6 tab 11/25/19 11/25/19 Rx Allergies Allergy/AdvReac Type Severity Reaction Status Date / Time No Known Allergies Allergy Verified 11/25/19 18:10 Physical Exam Vitals: Vital Signs Temp Pulse Pulse Resp BP BP Pulse Ox 11/27/19 12:10 114 H 24 95 11/27/19 12:00 95 F L 122 H 21 95 11/27/19 11:50 95.2 F L 121 H 21 94 L 11/27/19 11:40 121 H 24 94 L 11/27/19 11:30 95.4 F L 116 H 23 93 L 11/27/19 10:40 118 H 20 62/40 93 L 11/27/19 10:30 114 H 20 62/40 94 L 11/27/19 10:00 95.9 F L 120 H 25 H 100 11/27/19 08:45 98.1 F 121 H 16 53/42 11/27/19 03:44 98.6 F 110 H 18 102/67 97 11/26/19 23:31 98.5 F 124 H 19 104/74 99 11/26/19 20:00 98.5 F 110 H 19 136/67 99 11/26/19 15:45 98.2 F 116 H 18 114/65 100 Intake and Output 11/26/19 11/27/19 11/27/19 22:59 06:59 14:59 Intake Total 253.328 83.856 443.269 Output Total 0 Balance 253.328 83.856 443.269 Intake: IV 200 0.9 200 Intake, IV Titration 13.328 83.856 243.269 Amount Heparin Sod,Pork in 0.45% 13.328 83.856 NaCl 25,000 unit In 0.45 % NaCl 1 250ml.bag @ 18 UNITS/KG/HR 17.309 mls/hr IV .[id number] JUAN Rx#: [id number] Norepinephrine 8 mg In 243.269 Sodium Chloride 0.9% 250 ml @ 0.05 MCG/KG/MIN 10. 207 mls/hr IV .Q24H JUAN Rx#:[id number] Oral 240 Blood Product 0 Rc As-1 Unit 0 [id number] Output: Urine 0 Other: Voiding Method Diaper Diaper # Voids 1 5 Weight 105.5 kg ABP, PAP, CO, CI - Last 8 Hours Arterial Blood Pressure 67/48 Arterial Blood Pressure 95/61 Arterial Blood Pressure 84/53 Arterial Blood Pressure 74/48 Arterial Blood Pressure 53/39 Arterial Blood Pressure 62/43 Arterial Blood Pressure 73/47 Arterial Blood Pressure 74/48 GENERAL: Revealed a 64-year-old female, obese, intubated, mechanically ventilated, slightly agitated, but not following any instructions upon arrival to the ICU. Head: Atraumatic, normocephalic. Endotracheal tube and orogastric tubes are intact. EYES: Pupils equal. Conjunctiva normal. No icterus. HEENT: Dry mucous membranes, endotracheal tube is intact, throat is clear. NECK: No neck masses, no JVD. No cervical adenopathy. HEART: Normal S1 and S2, no S3 gallop. 2/6 systolic murmur thought the precordium. LUNGS: Diminished breath sound bilaterally, symmetrical chest expansion, no crackles or rhonchi or wheezes. ABDOMEN: Obese, Soft, mild tenderness, liver spleen not palpable, no masses palpable. PSYCH: Unable to assess, patient is sedated, on propofol and she was given Nimbex earlier. NEUROLOGICAL: Unable to assess. LYMPHATICS: No lymph nodes palpable in the axilla and neck Results - Laboratory Findings CBC and BMP: 11/27/19 10:15 11/27/19 08:20 ABG ABG pH 7.26 (7.35-7.45) L 11/27/19 09:09 ABG pCO2 29 mmHg (35-45) L 11/27/19 09:09 ABG pO2 >400 mmHg (83-108) H 11/27/19 09:09 ABG O2 Saturation 100.0 % (94-97) H 11/27/19 09:09 PT/INR, D-dimer PT 11.6 sec (9.0-12.0) 11/25/19 17:46 INR 1.1 (<1.2) 11/25/19 17:46 D-Dimer >35.20 mg/L FEU (<0.60) H 11/25/19 17:46 Abnormal lab findings: Abnormal Labs 11/25/19 11/25/19 11/25/19 17:46 17:46 17:46 WBC 16.1 H RBC Hgb Hct MCV MCHC Neutrophils # 14.5 H Neutrophils # (Manual) Lymphocytes # 0.4 L Monocytes # (Manual) Metamyelocytes # (Man) Myelocytes # (Manual) Promyelocytes # (Man) Nucleated RBCs Retic Count APTT D-Dimer >35.20 H ABG pH ABG pCO2 ABG pO2 ABG HCO3 ABG Total CO2 ABG O2 Saturation Chloride 110 H Carbon Dioxide 20 L BUN 25 H Creatinine 1.75 H Glucose 140 H POC Glucose (mg/dL) Calcium Magnesium 1.4 L AST ALT C-Reactive Protein Total Protein 6.1 L Albumin 3.1 L Procalcitonin Urine Protein Ur Leukocyte Esterase Urine Bacteria Crossmatch 11/25/19 11/26/19 11/26/19 18:35 01:13 07:27 WBC RBC Hgb Hct MCV MCHC Neutrophils # Neutrophils # (Manual) Lymphocytes # Monocytes # (Manual) Metamyelocytes # (Man) Myelocytes # (Manual) Promyelocytes # (Man) Nucleated RBCs Retic Count APTT >200.0 H* >200.0 H* D-Dimer ABG pH ABG pCO2 ABG pO2 ABG HCO3 ABG Total CO2 ABG O2 Saturation Chloride Carbon Dioxide BUN Creatinine Glucose POC Glucose (mg/dL) Calcium Magnesium AST ALT C-Reactive Protein Total Protein Albumin Procalcitonin Urine Protein 1+ H Ur Leukocyte Esterase Moderate H Urine Bacteria Rare H Crossmatch 11/26/19 11/26/19 11/26/19 07:27 07:27 07:28 WBC 13.2 H RBC 3.46 L Hgb 9.9 L D Hct 32.7 L MCV MCHC 30.2 L Neutrophils # 11.1 H Neutrophils # (Manual) Lymphocytes # Monocytes # (Manual) Metamyelocytes # (Man) Myelocytes # (Manual) Promyelocytes # (Man) Nucleated RBCs Retic Count APTT D-Dimer ABG pH ABG pCO2 ABG pO2 ABG HCO3 ABG Total CO2 ABG O2 Saturation Chloride Carbon Dioxide BUN Creatinine Glucose POC Glucose (mg/dL) Calcium Magnesium AST ALT C-Reactive Protein 148.7 H Total Protein Albumin Procalcitonin 1.27 H Urine Protein Ur Leukocyte Esterase Urine Bacteria Crossmatch 11/26/19 11/27/19 11/27/19 15:27 00:29 06:10 WBC 18.2 H RBC 2.31 L Hgb 6.7 L* D Hct 22.4 L MCV MCHC 29.9 L Neutrophils # 15.6 H Neutrophils # (Manual) Lymphocytes # Monocytes # (Manual) Metamyelocytes # (Man) Myelocytes # (Manual) Promyelocytes # (Man) Nucleated RBCs Retic Count APTT >200.0 H* >200.0 H* D-Dimer ABG pH ABG pCO2 ABG pO2 ABG HCO3 ABG Total CO2 ABG O2 Saturation Chloride Carbon Dioxide BUN Creatinine Glucose POC Glucose (mg/dL) Calcium Magnesium AST ALT C-Reactive Protein Total Protein Albumin Procalcitonin Urine Protein Ur Leukocyte Esterase Urine Bacteria Crossmatch 11/27/19 11/27/19 11/27/19 06:10 06:10 07:32 WBC RBC Hgb Hct MCV MCHC Neutrophils # Neutrophils # (Manual) Lymphocytes # Monocytes # (Manual) Metamyelocytes # (Man) Myelocytes # (Manual) Promyelocytes # (Man) Nucleated RBCs Retic Count APTT 36.0 H D-Dimer ABG pH ABG pCO2 ABG pO2 ABG HCO3 ABG Total CO2 ABG O2 Saturation Chloride 109 H Carbon Dioxide 17 L BUN 30 H Creatinine 2.71 H Glucose 124 H POC Glucose (mg/dL) 136 H Calcium 8.2 L Magnesium AST ALT C-Reactive Protein Total Protein Albumin Procalcitonin Urine Protein Ur Leukocyte Esterase Urine Bacteria Crossmatch 11/27/19 11/27/19 11/27/19 08:01 08:20 08:20 WBC 22.8 H RBC 2.07 L Hgb 6.0 L* Hct 21.2 L MCV 102.6 H D MCHC 28.0 L Neutrophils # Neutrophils # (Manual) 16.60 H Lymphocytes # Monocytes # (Manual) Metamyelocytes # (Man) 0.91 H Myelocytes # (Manual) 1.37 H Promyelocytes # (Man) 0.23 H Nucleated RBCs 1 H Retic Count APTT D-Dimer ABG pH ABG pCO2 ABG pO2 ABG HCO3 ABG Total CO2 ABG O2 Saturation Chloride 109 H Carbon Dioxide 11 L BUN 28 H Creatinine 2.84 H Glucose POC Glucose (mg/dL) 111 H Calcium 7.8 L Magnesium AST 268 H ALT 51 H C-Reactive Protein Total Protein 4.2 L Albumin 2.0 L Procalcitonin Urine Protein Ur Leukocyte Esterase Urine Bacteria Crossmatch 11/27/19 11/27/19 11/27/19 09:09 10:15 10:15 WBC 31.9 H RBC 1.86 L Hgb 5.6 L* Hct 18.0 L* MCV MCHC Neutrophils # Neutrophils # (Manual) 26.10 H Lymphocytes # Monocytes # (Manual) 1.60 H Metamyelocytes # (Man) 0.64 H Myelocytes # (Manual) 1.60 H Promyelocytes # (Man) Nucleated RBCs Retic Count 2.3 H APTT D-Dimer ABG pH 7.26 L ABG pCO2 29 L ABG pO2 >400 H ABG HCO3 13 L ABG Total CO2 14 L ABG O2 Saturation 100.0 H Chloride Carbon Dioxide BUN Creatinine Glucose POC Glucose (mg/dL) Calcium Magnesium AST ALT C-Reactive Protein Total Protein Albumin Procalcitonin Urine Protein Ur Leukocyte Esterase Urine Bacteria Crossmatch See Detail - Diagnostic Findings Chest x-ray: image reviewed (As noted in HPI.) Additional studies: CT of the brain as noted in HPI. Assessment and Plan Assessment: Impression: Cardiac arrest most likely secondary to septic shock. Secondary to urinary tract infection and sepsis. History of extensive deep vein thromboses the left lower extremity, and moderate probability for pulmonary embolism noted on recent admission. Patient was on heparin. Acute urinary tract infection from E. coli/ESBL. Benign essential hypertension. History of schizoaffective disorder. Acute on chronic kidney injury from hypotension and acute tubular necrosis. Suspect GI bleeding considering her hemoglobin has drifted significantly down since the patient was placed on heparin. Will check stools and gastric secretions for Hemoccult. In the meantime we will transfuse to a hemoglobin above 7. Hypotension secondary to septic shock and hypovolemia with profound anemia as noted on the CBC today. Chronic systolic dysfunction but no clear-cut evidence of congestive heart failure on the chest x-ray. Ejection fraction of 40%. Possible anoxic brain injury from cardiac arrest. That is yet to be determined in the next 24 hours. Recommendation: Continue ventilatory support. Fluid boluses and check lactic acid. Continue antibiotics as per infectious disease on the case. Resume heparin once we figure out the exact etiology of her anemia and make sure that the CT of the brain is negative for bleed. May have to consider IVC filter placement. Continue pressors. Patient is now on norepinephrine and vasopressin. Continue GI and DVT prophylaxis. Discussed her condition with after evaluating the patient and updated him on her condition. Prognosis is extremely poor and guarded, we will continue to follow. Prognosis is extremely poor and guarded, updated on her status. We will continue to follow. Time with Patient: Greater than 30
--- NOTE | 2019-11-27 14:12 | CT ---
EXAMINATION TYPE: CT ChestAbdPelvis wo con DATE OF EXAM: 11/27/2019 INDICATION: Possible abdominal bleed COMPARISON: None CT DLP: 1679.8 mGycm CONTRAST: Performed without Oral Contrast . No intravenous contrast. TECHNIQUE: Axial images at 5 mm thick sections. Reconstructed images in the coronal plane. Delayed images through the kidneys. FINDINGS: CT CHEST: Endotracheal tube is present with the tip above the selena. Nasogastric tube has its tip wi thin the stomach. Portion of the thyroid visualized is normal. No suspicious lung nodules or focal infiltrates are present. There is a small right pleural effusion. Minimal dependent compressive atelectasis is present. No enlarged mediastinal or hilar adenopathy is evident. The ascending aorta diameter at the level of the main pulmonary artery is 2.8 cm. The main pulmonary artery diameter at the bifurcation is cm. CT ABDOMEN: Ascites is present. Liver: Normal Spleen: Normal Pancreas: Normal Adrenal glands: The adrenal glands are normal. Gallbladder: Normal Kidneys: No masses are evident. No hydronephrosis is present. No cysts are present. Kidneys appear somewhat small. No renal stones are identified. Aorta: Vascular calcification is within the aorta. Inferior vena cava: Normal. CT PELVIS: There is diffuse thickening of the left rectus abdominis muscle. This may extend to nearly the level of the pubic symphysis. Some fullness within the left hemipelvis could be related to some hemorrhage within this region as well accounting for the displacement of the urinary bladder and cath eter towards the right. This may measure up to 5.7 x 9.7 x 9.0 cm. Series 202, image 61, series 201, image 100. This may extend from the obvious thickening along the left rectus abdominis muscle thicken ing. Loops of bowel within the abdomen and pelvis have limited evaluation. No oral contrast is evident. So me of these loops are difficult to separate from ascites present. Appendix: Not identified. No suspicious tubular structure or inflammatory changes evident. Urinary bladder: There is a catheter present. Urinary bladder appears decompressed Genitourinary structures: Uterus and ovaries are difficult to separate from loops of bowel and ascite s within the pelvis. Osseous structures: No suspicious lytic or sclerotic lesions. IMPRESSIONS: 1. Thickening with some hypodensity within the left rectus abdominis muscle. This appears to extend t o nearly the pubic ramus. A left lower pelvic wall thickening appears to be present which may be rela elyssa to the hemorrhage is well. 2. Fluid throughout the abdomen. The majority of the fluid is nearly 0 Hounsfield units suggesting so me ascites may account for more of the fluid within the suspected pelvic hemorrhage. 3. Report was called to Dr. Pompa in the ICU by Dr. Santoyo 1408 hours 11/27/2019. A Red level critical message alert has been initiated for Gage Peck MD via the [employer] Critical Results System on 11/27/2019 2:10 PM. This message alert has been sent to Gage Peck MD via the preferences provided by the clinician for the receipt of Radiology Critical Findings. Message ID [id number].
--- NOTE | 2019-11-27 14:51 | P.PN ---
Progress Note - Text Progress Note Date: 11/27/19 This is a late note entry. CODE BLUE note CODE BLUE was called around 7:30 this morning. Patient was noted to be in PEA arrest when I arrived. She underwent chest compressions. She received 1 dose of epinephrine during the code. 2 A of bicarb was used. Please refer to the code sheet for further details. She had spontaneous return of circulation after about 8-10 minutes. She was intubated and transferred to the ICU. Stat CBC, CMP, chest x-ray, EKG was ordered. Dr. Peck was notified. This event took about 35 minutes.
--- NOTE | 2019-11-27 14:51 | P.PN ---
Progress Note - Text Progress Note Date: 11/27/19 Chief Complaint: Weakness short of breath History of presenting complaint: This is a pleasant 64-year-old patient of Dr. Reuben Chino. Chronic stable medical conditions include schizoaffective disorder, chronic kidney disease stage III, hypertension, GERD. Patient was here in the hospital from November 22 through November 24. Discharged yesterday. Patient's had present to the ER with 2 weeks of nausea vomiting not able to keep anything down some diarrhea abdominal pain. Denies any fever and chills. Tired rundown. Patient appears to be rather distant during the history giving. Not been able to eat much. ER physician related at all from time she says she is fine though she'll often have other contradictory complaints. She was able to eat only a very small amount in the ER the last if she ate she said yes. Admitted with-acute gastroenteritis. Started on IV fluids and Flagyl and ciprofloxacin. Seen by psychiatry. Diagnosed with-schizoaffective disorder. No change in medications. Nitrofurantoin was added for the ESBL/E. coli. Yesterday morning she was doing much better. Tolerating a diet. Comfortable. Smiling. Nitrofurantoin was started today. Discussed with the patient. Patient was therefore discharged. Patient then went home. Started feeling weak and tired. Morris weak in the legs. Was feeling a bit short of breath. Discussed with the ER physician. Doppler ultrasound lower extremity followed by a VQ scan showed DVT and a moderate proba bility of PE. Patient started on IV heparin. No chest pain. No fever no chills. A bit tired. Admitted with-acute left lower extremity DVT and pulmonary embolism. Started on IV heparin. Today-patient's PTT was running high. And a nurse to follow heparin protocol. Noted worsening agent was given because of the acute DVT that could worsen it. This morning patient hemoglobin drop. Blood was ordered. GI was consulted. Subsequently a code was called as the patient was found unconscious. Receive a dose of epinephrine. And pulse came back. Initial pulses unknown. Patient with ICU. Computed tomography scan of the brain was negative. Abdomen felt a bit distended. I ordered a computed tomography scan of the abdomen. She did come back showing-bleeding on the left rectus abdominis muscle. Including extending into the pelvic area. Patient had been intubated. On the ventilator. I also spoke earlier today to patient's on the phone. Patient has been put on levo fed Review of systems cannot be done patient is intubated Active Medications Acetaminophen (Tylenol Tab) 650 mg PO Q6HR PRN PRN Reason: Mild Pain or Fever > 100.5 Last Admin: 11/27/19 03:14 Dose: 650 mg Documented by: Cholecalciferol (Vitamin D3 (25 Mcg = 1000 Iu)) 5,000 unit PO DAILY [facility] Last Admin: 11/27/19 11:40 Dose: Not Given Documented by: Ferrous Sulfate (Feosol) 325 mg PO DAILY [facility] Last Admin: 11/27/19 11:40 Dose: Not Given Documented by: Norepinephrine Bitartrate 8 mg (/ Sodium Chloride) 258 mls @ 10.207 mls/hr IV .Q24H [facility]; Protocol Last Admin: 11/27/19 12:15 Dose: 0.6 mcg/kg/min, 122.486 mls/hr Documented by: Sodium Chloride (Saline 0.9%) 1,000 mls @ 100 mls/hr IV .Q10H [facility] Last Admin: 11/27/19 12:17 Dose: 100 mls/hr Documented by: Propofol 1,000 mg/ IV Solution 100 mls @ 0 mls/hr IV .Q0M [facility]; Protocol Last Admin: 11/27/19 11:41 Dose: 20 mcg/kg/min, 12.66 mls/hr Documented by: Vasopressin 20 unit/ Sodium (Chloride) 51 mls @ 4.59 mls/hr IVPB .Q11H7M [facility] Last Admin: 11/27/19 09:35 Dose: 4.59 mls/hr Documented by: Ertapenem 0.5 gm/ Sodium (Chloride) 50 mls @ 100 mls/hr IVPB DAILY [facility]; Protocol Lamotrigine (Lamictal) 200 mg PO DAILY [facility] Last Admin: 11/27/19 11:40 Dose: Not Given Documented by: Naloxone HCl (Narcan) 0.2 mg IV Q2M PRN PRN Reason: Opioid Reversal Pantoprazole Sodium (Protonix) 40 mg IVP DAILY [facility] Sodium Bicarbonate (Sodium Bicarbonate Tab) 650 mg PO TID [facility] Last Admin: 11/27/19 09:35 Dose: Not Given Documented by: Physical examination: VITAL SIGNS: 95.2, 123, 26, 70/51, GENERAL: BMI 37.6, laying in bed, intubated EYES: Pupils equal. Conjunctiva pale HEENT: External appearance of nose and ears normal,-endotracheal tube NECK: JVD not raised; masses not palpable. HEART: First and second heart sounds are normal; no edema. LUNGS: Respiratory rate increased, decreased breath sounds ABDOMEN: Soft, distended, mild tenderness, liver spleen not palpable, no masses palpable. PSYCH: Unable to assess INVESTIGATIONS, reviewed in the clinical context: Hemoglobin this morning 6 repeat 5.6, white count 31.9 platelets 265 potassium 4.8 bun 28 creatinine 2.84 albumin 2 Computed tomography scan of the abdomen showing bleeding in the rectus muscle sheath and some of the pelvis Previous testing White count 13.2 hemoglobin 9.9 platelets 08/15/2019 bun 25 creatinine 1.75 2-D echocardiogram-EF 40-45% with inferior basal wall hypokinetic. Doppler ultrasound of the left leg shows thrombus within the left external iliac vein, common femoral vein, deep femoral vein, and proximal femoral vein. Previous testing: Patient's white count 16.1 and hemoglobin 12.2 potassium 4.2 creatinine was 1.551 11/23/2019 Assessment: -Acute rectus sheath bleeding, secondary to IV heparin -Acute blood loss anemia from bleeding in the rectus sheath -Hypotensive shock requiring pressor support -Ventilator support to protect the airways -Acute extensive DVT in the left lower extremity and acute pulmonary embolism, POA -Schizoaffective disorder -Essential hypertension -Acute UTI from cystitis from E. coli/ESBL. -GERD -Patient has no acute kidney injury. -Patient loss admission hemoglobin initially was 12.2 it was 10.5 and she left. Likely it was elevated from hemoconcentration initially because of gastroenteritis. -Suspect normocytic anemia secondary to chronic kidney disease -Chronic kidney disease stage III likely nephrosclerosis, with hypertension -IV heparin monitoring-has been discontinued -Chronic systolic heart failure from EF of 40-45% likely from hypertensive heart disease Plan: Consultation this morning was made to GI and hematology. Later Dr. Dhillon and recruitment manager was consulted and patient was transferred to the ICU. Also general surgery Dr. Johnson was consulted. Blood was ordered earlier today. 2 more units of blood Noted.. Prognosis guarded.
[2019-11-27 15:14] LABS: LDH 4220 U/L (313-618)
[2019-11-27 16:00] LABS: HCT 33.1 % (34.0-46.0); Hypochromasia Marked; MCH 28.5 pg (25.0-35.0); MCHC 30.6 g/dL (31.0-37.0); MCV 93.1 fL (80.0-100.0); Mean Platelet Volume 8.5; Platelet Count 204 k/uL (150-450); RBC 3.55 m/uL (3.80-5.40); RDW 14.9 % (11.5-15.5); WBC 40.8 k/uL (3.8-10.6)
[2019-11-27 16:14] LABS: INR 1.5 (<1.2); Prothrombin Time 14.4 sec (9.0-12.0)
[2019-11-27 16:23] LABS: HGB 10.1 gm/dL (11.4-16.0)
--- NOTE | 2019-11-27 16:31 | PN ---
PROGRESS NOTE CARDIOLOGY FOLLOW-UP NOTE: This patient is a 64-year-old lady who was admitted to hospital with shortness of breath, was found to have DVT and pulmonary embolism. The patient was on IV heparin. That was on hold because of elevated PTT. This morning she was found in the room in distress and was intubated and is currently in ICU. Her labs came back with a hemoglobin of 5.6. She was admitted with a hemoglobin of 11.4 and dropped the hemoglobin to 6.7 this morning, and that has worsened further. She is intubated on vent, severely hypotensive and on large doses of pressors. The exact etiology for her blood loss is unclear. She does not have any hematemesis, does not have blood per rectum. It is possible she had a retroperitoneal bleed. PHYSICAL EXAMINATION: Heart rate is 110 beats per minute. Blood pressure is 74/48, respiratory rate 18 to 24. Chest exam reveals good air entry bilaterally. Heart exam reveals first and second heart sounds. No gallop. Examination of extremities did not reveal any edema. Peripheral pulses are diminished. ASSESSMENT: 1. Cardiogenic shock. 2. Acute anemia secondary to acute blood loss. 3. Deep venous thrombosis. 4. Pulmonary embolism. PLAN: She is not a candidate for heparin at this time. Give her IV. Transfuse her. Resuscitate her with fluids and pressors. If she improves, we may have to consider a Cecelia filter, given the DVT that she has. Vascular surgeon is already on the case. MMODL / IJN: [id number] /
[2019-11-27 17:33] VITALS: BP 97/63
--- NOTE | 2019-11-27 17:45 | P.CONS ---
History of Present Illness - Reason for Consult Consult date: 11/27/19 Anemia Requesting physician: Gage Peck - Chief Complaint PEA, UTI - History of Present Illness Ms Calle is a 64-year-old female who was recently admitted for UTI. She was treated with po antibiotics at discharge. After discharge she apparently suffered a fall, denied trauma to head, although as she was home (per medical record) she begame more and more weak, therefore she re-presented to emergency department. She presented with low grade fever 100.3, ID was consulted for UTI and IV antibiotics after a full panwork-up was initiated. Urine culture was p ositive for ESBL E. coli. During her hospitalization Lower extremity doppler and VQ scan was performed revealing LLE DVT and Moderate probability for PE. Patient was initiated on heparin drip at that time. This has since been discontinued as 730 this am patient was found PEA, Code blue resulted with ventilation and transfer to ICU. Hemoglobin was 6.7 down to 5.6, now 10.1. She did receive PRBC transfusions. Coags are mildly prolonged. Because of her severe anemia hematology was asked to further evaluate. Review of Systems ROS unobtainable: due to endotracheal tube Past Medical History Past Medical History: Hypertension Additional Past Medical History / Comment(s): just discharged 11/24/2019 for uti History of Any Multi-Drug Resistant Organisms: ESBL Year Discovered:: 11/23/19 MDRO Source:: ESBL URINE Past Surgical History: Section Past Anesthesia/Blood Transfusion Reactions: No Reported Reaction Past Psychological History: Bipolar Smoking Status: Never smoker Past Alcohol Use History: None Reported Past Drug Use History: None Reported Medications and Allergies Home Medications Medication Instructions Recorded Confirmed Type Cholecalciferol [Vitamin D3 (25 5,000 unit PO DAILY 11/23/19 11/25/19 History Mcg = 1000 Iu)] Ferrous Sulfate [Iron (65 MG 325 mg PO DAILY 11/23/19 11/25/19 History Elemental)] Haloperidol [Haldol] 1 mg PO HS 11/23/19 11/25/19 History Omeprazole [PriLOSEC] 40 mg PO DAILY 11/23/19 11/25/19 History amLODIPine [Norvasc] 2.5 mg PO DAILY 11/23/19 11/25/19 History lamoTRIgine [LaMICtal] 200 mg PO DAILY 11/23/19 11/25/19 History Levofloxacin [Levaquin] 250 mg PO Q24H #2 tab 11/25/19 11/25/19 Rx Nitrofurantoin Macrocrystal 50 mg PO BID #14 capsule 11/25/19 11/25/19 Rx [Nitrofurantoin] metroNIDAZOLE [Flagyl] 500 mg PO TID #6 tab 11/25/19 11/25/19 Rx Allergies Allergy/AdvReac Type Severity Reaction Status Date / Time No Known Allergies Allergy Verified 11/25/19 18:10 Physical Exam Vitals: Vital Signs Temp Pulse Pulse Resp BP BP Pulse Ox 11/27/19 16:20 133 H 29 H 97/63 88 L 11/27/19 16:13 98.2 F 134 H 29 H 89/62 91 L 11/27/19 16:10 133 H 33 H 97/63 92 L 11/27/19 16:03 96 F L 133 H 29 H 81/57 11/27/19 16:00 97.9 F 130 H 33 H 91 L 11/27/19 15:50 130 H 34 H 89 L 11/27/19 15:40 130 H 31 H 89 L 11/27/19 15:30 126 H 28 H 89 L 11/27/19 15:20 129 H 30 H 90 L 11/27/19 15:10 125 H 28 H 92 L 11/27/19 15:09 97.5 F L 130 H 30 H 64/49 90 L 11/27/19 15:00 96.4 F L 126 H 28 H 92 L 11/27/19 14:50 126 H 27 H 92 L 11/27/19 14:40 128 H 29 H 92 L 11/27/19 14:33 96.1 F L 126 H 28 H 79/56 11/27/19 14:30 126 H 27 H 92 L 11/27/19 14:20 126 H 29 H 92 L 11/27/19 14:10 123 H 29 H 94 L 11/27/19 14:03 95.7 F L 126 H 29 H 66/48 11/27/19 14:00 124 H 29 H 62/40 85 L 11/27/19 13:54 95.5 F L 125 H 29 H 69/52 92 L 11/27/19 13:53 95.5 F L 60 29 H 66/50 89 L 11/27/19 13:50 123 H 25 H 87 L 11/27/19 13:40 95.2 F L 123 H 26 H 85 L 11/27/19 13:36 95.2 F L 123 H 26 H 70/51 11/27/19 12:50 123 H 19 96 11/27/19 12:40 122 H 23 97 11/27/19 12:30 123 H 24 99 11/27/19 12:20 95.5 F L 117 H 23 100 11/27/19 12:10 114 H 24 95 11/27/19 12:00 95 F L 122 H 121 H 21 95 11/27/19 11:50 95.2 F L 121 H 21 94 L 11/27/19 11:40 121 H 24 94 L 11/27/19 11:30 95.4 F L 116 H 23 93 L 11/27/19 10:40 118 H 20 62/40 93 L 11/27/19 10:30 114 H 20 62/40 94 L 11/27/19 10:00 95.9 F L 120 H 25 H 100 11/27/19 08:45 98.1 F 121 H 16 53/42 11/27/19 03:44 98.6 F 110 H 18 102/67 97 11/26/19 23:31 98.5 F 124 H 19 104/74 99 11/26/19 20:00 98.5 F 110 H 19 136/67 99 Intake and Output 11/27/19 11/27/19 11/27/19 06:59 14:59 22:59 Intake Total 83.856 1327.938 250 Output Total 0 0 Balance 83.856 1327.938 250 Intake: IV 400 200 0.9 400 200 Intake, IV Titration 83.856 517.938 Amount Heparin Sod,Pork in 0.45% 83.856 NaCl 25,000 unit In 0.45 % NaCl 1 250ml.bag @ 18 UNITS/KG/HR 17.309 mls/hr IV .[id number] [facility] Rx#: [id number] Norepinephrine 8 mg In 501.269 Sodium Chloride 0.9% 250 ml @ 0.05 MCG/KG/MIN 10. 207 mls/hr IV .Q24H [facility] Rx#:[id number] Propofol 1,000 mg In 16.669 Empty Bag 1 bag @ Titrate IV .Q0M [facility] Rx#: [id number] Blood Product 310 0 Rc As-1 Unit 0 [id number] Rc As-1 Unit 310 [id number] Rc As-3 Unit 0 0 [id number] Other 100 50 Rc As-1 Unit 100 [id number] Rc As-3 Unit 50 [id number] Output: Urine 0 0 Other: Voiding Method Diaper Indwelling Catheter # Voids 5 Weight 105.5 kg ABP, PAP, CO, CI - Last 8 Hours Arterial Blood Pressure 79/56 Arterial Blood Pressure 79/56 Arterial Blood Pressure 67/49 Arterial Blood Pressure 69/51 Arterial Blood Pressure 64/48 Arterial Blood Pressure 72/54 Arterial Blood Pressure 71/52 Arterial Blood Pressure 77/56 Arterial Blood Pressure 78/56 Arterial Blood Pressure 79/56 Arterial Blood Pressure 78/57 Arterial Blood Pressure 78/55 Arterial Blood Pressure 74/53 Arterial Blood Pressure 70/51 Arterial Blood Pressure 60/45 Arterial Blood Pressure 69/51 Arterial Blood Pressure 72/51 Arterial Blood Pressure 79/53 Arterial Blood Pressure 81/53 Arterial Blood Pressure 69/51 Arterial Blood Pressure 76/51 Arterial Blood Pressure 67/48 Arterial Blood Pressure 95/61 Arterial Blood Pressure 84/53 Arterial Blood Pressure 74/48 Arterial Blood Pressure 53/39 Arterial Blood Pressure 62/43 Arterial Blood Pressure 73/47 Arterial Blood Pressure 74/48 Vent NAD Results CBC & Chem 7: 11/27/19 15:35 11/27/19 08:20 Labs: Abnormal Lab Results - Last 24 Hours (Table) 11/26/19 11/27/19 11/27/19 Range/Units 07:27 00:29 06:10 WBC 18.2 H (3.8-10.6) k/uL RBC 2.31 L (3.80-5.40) m/uL Hgb 6.7 L* D (11.4-16.0) gm/dL Hct 22.4 L (34.0-46.0) % MCV (80.0-100.0) fL MCHC 29.9 L (31.0-37.0) g/dL Neutrophils # 15.6 H (1.3-7.7) k/uL Neutrophils # (Manual) (1.3-7.7) k/uL Monocytes # (Manual) (0-1.0) k/uL Metamyelocytes # (Man) (0) k/uL Myelocytes # (Manual) (0) k/uL Promyelocytes # (Man) (0) k/uL Nucleated RBCs (0-0) /100 WBC Retic Count (0.5-2.0) % PT (9.0-12.0) sec INR (<1.2) APTT >200.0 H* (22.0-30.0) sec ABG pH (7.35-7.45) ABG pCO2 (35-45) mmHg ABG pO2 (83-108) mmHg ABG HCO3 (21-25) mmol/L ABG Total CO2 (19-24) mmol/L ABG O2 Saturation (94-97) % Chloride (98-107) mmol/L Carbon Dioxide (22-30) mmol/L BUN (7-17) mg/dL Creatinine (0.52-1.04) mg/dL Glucose (74-99) mg/dL POC Glucose (mg/dL) (75-99) mg/dL Calcium (8.4-10.2) mg/dL AST (14-36) U/L ALT (4-34) U/L Lactate Dehydrogenase (313-618) U/L Total Protein (6.3-8.2) g/dL Albumin (3.5-5.0) g/dL Procalcitonin 1.27 H (0.02-0.09) ng/mL Crossmatch 11/27/19 11/27/19 11/27/19 Range/Units 06:10 06:10 07:32 WBC (3.8-10.6) k/uL RBC (3.80-5.40) m/uL Hgb (11.4-16.0) gm/dL Hct (34.0-46.0) % MCV (80.0-100.0) fL MCHC (31.0-37.0) g/dL Neutrophils # (1.3-7.7) k/uL Neutrophils # (Manual) (1.3-7.7) k/uL Monocytes # (Manual) (0-1.0) k/uL Metamyelocytes # (Man) (0) k/uL Myelocytes # (Manual) (0) k/uL Promyelocytes # (Man) (0) k/uL Nucleated RBCs (0-0) /100 WBC Retic Count (0.5-2.0) % PT (9.0-12.0) sec INR (<1.2) APTT 36.0 H (22.0-30.0) sec ABG pH (7.35-7.45) ABG pCO2 (35-45) mmHg ABG pO2 (83-108) mmHg ABG HCO3 (21-25) mmol/L ABG Total CO2 (19-24) mmol/L ABG O2 Saturation (94-97) % Chloride 109 H (98-107) mmol/L Carbon Dioxide 17 L (22-30) mmol/L BUN 30 H (7-17) mg/dL Creatinine 2.71 H (0.52-1.04) mg/dL Glucose 124 H (74-99) mg/dL POC Glucose (mg/dL) 136 H (75-99) mg/dL Calcium 8.2 L (8.4-10.2) mg/dL AST (14-36) U/L ALT (4-34) U/L Lactate Dehydrogenase (313-618) U/L Total Protein (6.3-8.2) g/dL Albumin (3.5-5.0) g/dL Procalcitonin (0.02-0.09) ng/mL Crossmatch 11/27/19 11/27/19 11/27/19 Range/Units 08:01 08:20 08:20 WBC 22.8 H (3.8-10.6) k/uL RBC 2.07 L (3.80-5.40) m/uL Hgb 6.0 L* (11.4-16.0) gm/dL Hct 21.2 L (34.0-46.0) % MCV 102.6 H D (80.0-100.0) fL MCHC 28.0 L (31.0-37.0) g/dL Neutrophils # (1.3-7.7) k/uL Neutrophils # (Manual) 16.60 H (1.3-7.7) k/uL Monocytes # (Manual) (0-1.0) k/uL Metamyelocytes # (Man) 0.91 H (0) k/uL Myelocytes # (Manual) 1.37 H (0) k/uL Promyelocytes # (Man) 0.23 H (0) k/uL Nucleated RBCs 1 H (0-0) /100 WBC Retic Count (0.5-2.0) % PT (9.0-12.0) sec INR (<1.2) APTT (22.0-30.0) sec ABG pH (7.35-7.45) ABG pCO2 (35-45) mmHg ABG pO2 (83-108) mmHg ABG HCO3 (21-25) mmol/L ABG Total CO2 (19-24) mmol/L ABG O2 Saturation (94-97) % Chloride 109 H (98-107) mmol/L Carbon Dioxide 11 L (22-30) mmol/L BUN 28 H (7-17) mg/dL Creatinine 2.84 H (0.52-1.04) mg/dL Glucose (74-99) mg/dL POC Glucose (mg/dL) 111 H (75-99) mg/dL Calcium 7.8 L (8.4-10.2) mg/dL AST 268 H (14-36) U/L ALT 51 H (4-34) U/L Lactate Dehydrogenase (313-618) U/L Total Protein 4.2 L (6.3-8.2) g/dL Albumin 2.0 L (3.5-5.0) g/dL Procalcitonin (0.02-0.09) ng/mL Crossmatch 11/27/19 11/27/19 11/27/19 Range/Units 09:09 10:15 10:15 WBC 31.9 H (3.8-10.6) k/uL RBC 1.86 L (3.80-5.40) m/uL Hgb 5.6 L* (11.4-16.0) gm/dL Hct 18.0 L* (34.0-46.0) % MCV (80.0-100.0) fL MCHC (31.0-37.0) g/dL Neutrophils # (1.3-7.7) k/uL Neutrophils # (Manual) 26.10 H (1.3-7.7) k/uL Monocytes # (Manual) 1.60 H (0-1.0) k/uL Metamyelocytes # (Man) 0.64 H (0) k/uL Myelocytes # (Manual) 1.60 H (0) k/uL Promyelocytes # (Man) (0) k/uL Nucleated RBCs (0-0) /100 WBC Retic Count 2.3 H (0.5-2.0) % PT (9.0-12.0) sec INR (<1.2) APTT (22.0-30.0) sec ABG pH 7.26 L (7.35-7.45) ABG pCO2 29 L (35-45) mmHg ABG pO2 >400 H (83-108) mmHg ABG HCO3 13 L (21-25) mmol/L ABG Total CO2 14 L (19-24) mmol/L ABG O2 Saturation 100.0 H (94-97) % Chloride (98-107) mmol/L Carbon Dioxide (22-30) mmol/L BUN (7-17) mg/dL Creatinine (0.52-1.04) mg/dL Glucose (74-99) mg/dL POC Glucose (mg/dL) (75-99) mg/dL Calcium (8.4-10.2) mg/dL AST (14-36) U/L ALT (4-34) U/L Lactate Dehydrogenase (313-618) U/L Total Protein (6.3-8.2) g/dL Albumin (3.5-5.0) g/dL Procalcitonin (0.02-0.09) ng/mL Crossmatch See Detail 11/27/19 11/27/19 11/27/19 Range/Units 11:35 15:35 15:35 WBC 40.8 H (3.8-10.6) k/uL RBC 3.55 L (3.80-5.40) m/uL Hgb 10.1 L D (11.4-16.0) gm/dL Hct 33.1 L (34.0-46.0) % MCV (80.0-100.0) fL MCHC 30.6 L (31.0-37.0) g/dL Neutrophils # (1.3-7.7) k/uL Neutrophils # (Manual) (1.3-7.7) k/uL Monocytes # (Manual) (0-1.0) k/uL Metamyelocytes # (Man) (0) k/uL Myelocytes # (Manual) (0) k/uL Promyelocytes # (Man) (0) k/uL Nucleated RBCs (0-0) /100 WBC Retic Count (0.5-2.0) % PT 14.4 H (9.0-12.0) sec INR 1.5 H (<1.2) APTT 32.0 H (22.0-30.0) sec ABG pH (7.35-7.45) ABG pCO2 (35-45) mmHg ABG pO2 (83-108) mmHg ABG HCO3 (21-25) mmol/L ABG Total CO2 (19-24) mmol/L ABG O2 Saturation (94-97) % Chloride (98-107) mmol/L Carbon Dioxide (22-30) mmol/L BUN (7-17) mg/dL Creatinine (0.52-1.04) mg/dL Glucose (74-99) mg/dL POC Glucose (mg/dL) (75-99) mg/dL Calcium (8.4-10.2) mg/dL AST (14-36) U/L ALT (4-34) U/L Lactate Dehydrogenase 4220 H (313-618) U/L Total Protein (6.3-8.2) g/dL Albumin (3.5-5.0) g/dL Procalcitonin (0.02-0.09) ng/mL Crossmatch Microbiology - Last 24 Hours (Table) 11/25/19 17:46 Blood Culture - Preliminary Blood No Growth after 24 hours Assessment and Plan Plan: Assessment and Recommendations: Severe Normocytic Anemia: - Likely secondary to acute blood loss anemia related to CT pelvis findings of left hemipelvis hemorrhage - Gen Surgery for bleed Acute DVT/PE: - Doppler positive for DVT LLE - VQ Scan moderate probability PE - Heparin drip discontinued secondary to bleed - Will likely need IVC filter moving forward with bleeding risk on AC therapy BENI/CKD: - Baseline appears to be Creatinine 1.5 - Increased >2.5 - Nephrology Plan: - All acute issues per ICU and primary teams - Rec IVC once stabilized, increased risk with anticoagulation therapy - Anemia work-up for intermittent chronic anemia in picture of CKD. - Check Coag factors Physician Attest: I have assessed and completed this patient and agree with above dictation, dictated as a scribe
[2019-11-27 18:10] VITALS: PULSE 138; RESP 33; TEMP 96.7
[2019-11-27] MEDS ORDERED: MORPHINE SULFATE (100 MG/2 ML) 100 MG in SODIUM CHLORIDE 0.9% 100 ML IV SCH (18:15)
--- NOTE | 2019-11-27 19:08 | CONS ---
CONSULTATION DATE OF DICTATION: 11/27/2019 REASON FOR CONSULTATION: Severe anemia. HISTORY OF PRESENT ILLNESS: The patient is a 64-year-old pleasant white female who was admitted to the hospital yesterday for UTI/sepsis. Apparently the patient was discharged home 2 days ago on oral antibiotics with Cipro and Flagyl. After she went home, she started complaining of severe weakness, unable to get out of bed, and a fever of 100.3; and hence she was brought back to the emergency room. There she was noted to have leukocytosis, and urinalysis once again showed evidence of UTI. She was started on broad-spectrum antibiotics and Dr. Garcia was consulted. Apparently this morning she had cardiac arrest; she became unresponsive with pulseless electrical activity. CPR was initiated. She was revived in 5 minutes and she was transferred to the intensive care unit, presently intubated and on the vent. She was also diagnosed with acute DVT yesterday and was started on IV heparin last night. Since being in the intensive care unit, as per the nursing staff, she has been having abdominal distention. The reason GI is consulted is because of severe anemia. At the time of admission to the hospital her hemoglobin was 12 g/dL, but this morning it was 5.6 g/dL. She is currently using a second unit of PRBC transfusion. As per the nursing staff, no evidence of active GI bleed noted. She has an OG tube in place with clear fluid in the OG tube. She did not have any episodes of melena or rectal bleeding. The patient is intubated on the vent, and history was obtained from the patient's chart. PAST MEDICAL HISTORY: Hypertension, recent UTI, anxiety and depression. MEDICATIONS: Medications at home are Flagyl, Levaquin, Lamictal, Norvasc, Prilosec, Haldol, vitamin D3 and iron. ALLERGIES: NONE. PAST SURGICAL HISTORY: . SOCIAL HISTORY: No smoking. No alcohol use. FAMILY HISTORY: Unremarkable. Review of systems could not be obtained, as patient is on the vent and sedated. PHYSICAL EXAMINATION: Vital signs show a blood pressure of 86/42, pulse rate 121. T-max was 100.3. HEENT examination unremarkable. Conjunctivae pale. Sclerae oral cavity no lesions. NECK: No JVD or lymph node enlargement. CHEST: Clear to auscultation. HEART: Regular rate and rhythm. ABDOMEN: Distended. There was some fullness noted in the left side of the abdomen. No free fluid appreciated. EXTREMITIES: No pedal edema. NEUROLOGIC: She is sedated. LABS/IMAGING: Labs done at the time of admission to the hospital showed initial hemoglobin 2 days ago was 11.4. Yesterday it was 9.9 and today it is 5.6 g/dL. WBC increased to 31.9. Platelets are normal. Basic metabolic panel showed a BUN of 28, creatinine 2.84. AST and ALT were within normal limits. Today they are 268 and 51, respectively. PTT was more than 200. Now it is 3.6. CT of the abdomen and pelvis done this afternoon did show evidence of large rectus sheath hematoma which was extending all the way to the pelvis. Also there was evidence of ascites noted. IMPRESSION: 1. Acute severe anemia with clinically no evidence of active gastrointestinal bleed. CT of the abdomen and pelvis showed a rectus sheath hematoma extending into the pelvis with intraabdominal bleeding. The patient was diagnosed with DVT yesterday. She was started on IV heparin, which currently is on hold. 2. Cardiac arrest, most likely from septic shock. Presently on IV antibiotics. She has significant leukocytosis, probably urinary tract infection. Dr. Garcia is following the patient closely. 3. Severe hypotension from sepsis and septic shock. 4. Congestive heart failure. 5. Acute respiratory failure. Remains on the vent. RECOMMENDATIONS: 1. Continue with management per ICU. 2. Agree with PRBC transfusion. 3. Continue with Protonix 40 mg twice a day. 4. Morning closely for any active GI bleed. 5. Consult Surgery for intraabdominal bleeding. 6. Monitor labs on a close basis. 7. Will follow with you closely. Thank you for this consultation. MMODL / IJN: [id number] /
--- NOTE | 2019-11-27 19:53 | OP ---
OPERATIVE REPORT OPERATIVE PROCEDURE: Placement of a right brachial arterial line. PREOPERATIVE DIAGNOSIS: Cardiac arrest and hypotension. POSTOPERATIVE DIAGNOSIS: Cardiac arrest and hypotension. ANESTHESIA USED: None deployed. PROCEDURE DESCRIPTION: The patient was placed in supine position. The right brachial region was prepared in a sterile fashion and drapes were applied. The right brachial artery was palpated, cannulated, and a guidewire was placed. A Cook's catheter was inserted over the guidewire, and the guidewire was removed. Good blood flow and good waveform noted. Line was secured using 3.0 silk sutures. No evidence of any complications. MMODL / IJN: [id number] /
--- NOTE | 2019-11-27 19:53 | OP ---
OPERATIVE REPORT OPERATIVE PROCEDURE: Placement of a right subclavian triple-lumen catheter. PREOPERATIVE DIAGNOSIS: Cardiac arrest. POSTOPERATIVE DIAGNOSIS: Cardiac arrest. ANESTHESIA USED: Two milliliters of 1% Lidocaine. PROCEDURE DESCRIPTION: The patient was placed in Trendelenburg position. The area of the right subclavian region was prepared in a sterile fashion and drapes were applied. Using the infraclavicular approach, the right subclavian vein was cannulated easily, a guidewire was placed, and the area of the guidewire was dilated. Then a triple-lumen catheter was inserted over the guidewire, and the guidewire was removed. Good flow was noted in the 3 different ports of the triple-lumen catheter. Chest x-ray showed adequate placement of the central line. No evidence of any immediate complications. MMODL / IJN: [id number] /
[2019-11-27 20:08] LABS: Folate, Serum 3.6 ng/mL; Protein, Total 2.7 g/dL (6.2-8.2)
[2019-11-27 21:08] LABS: % Iron Saturation 70.59 (12.00-45.00); Ferritin >16500.0 ng/mL (22.0-322.0); Iron 84 ug/dL (50-170); Rheumatoid Factor, Qnt 230 IU/mL (0-15); Total Iron Binding Capacity 119 ug/dL (228-460)
[2019-11-28] MEDS ORDERED: PANTOPRAZOLE 40 MG/10 ML VIAL IVP SCH (09:00)
[2019-11-28] MEDS ORDERED: ERTAPENEM 0.5 GM in SODIUM CHLORIDE 0.9% 50 ML IVPB SCH (09:00)
[2019-11-28 11:10] LABS: Immunoglobulin M 38.5 mg/dL (40.0-280.0)
[2019-12-02 15:19] LABS: Albumin 1.35 g/dL (3.80-4.90); Gamma Globulin 0.32 g/dL (0.70-1.50)
== END 2019-11-27 18:51 | disposition hospice, inpatient (51) | DRG 871 ==
LOC: EC 16:54 → 3SCARD 19:31 → 2SICU 11-27 07:59
PROVIDERS: ADMIT Hospitalist; ATTEND Hospitalist
PROC: 5A12012 Performance of Cardiac Output, Single, Manual (ICD-10-PCS; principal; 2019-11-27)
PROC: 0BH17EZ Insertion of Endotracheal Airway into Trachea, Via Natural or Artificial Opening (ICD-10-PCS; principal; 2019-11-27)
PROC: 5A1935Z Respiratory Ventilation, Less than 24 Consecutive Hours (ICD-10-PCS; principal; 2019-11-27)
PROC: 03HY32Z Insertion of Monitoring Device into Upper Artery, Percutaneous Approach (ICD-10-PCS; 2019-11-27)
PROC: 4A133B1 Monitoring of Arterial Pressure, Peripheral, Percutaneous Approach (ICD-10-PCS; 2019-11-27)
PROC: 30243N1 Transfusion of Nonautologous Red Blood Cells into Central Vein, Percutaneous Approach (ICD-10-PCS; 2019-11-27)
PROC: 3E043XZ Introduction of Vasopressor into Central Vein, Percutaneous Approach (ICD-10-PCS; 2019-11-27)
PROC: 02H633Z Insertion of Infusion Device into Right Atrium, Percutaneous Approach (ICD-10-PCS; 2019-11-27)
PROC: 0D9670Z Drainage of Stomach with Drainage Device, Via Natural or Artificial Opening (ICD-10-PCS; 2019-11-27)
PROC: 4A133J1 Monitoring of Arterial Pulse, Peripheral, Percutaneous Approach (ICD-10-PCS; 2019-11-27)
DX: A41.9 Sepsis, unspecified organism (principal); I26.99 Other pulmonary embolism without acute cor pulmonale; N17.0 Acute kidney failure with tubular necrosis; I46.8 Cardiac arrest due to other underlying condition; R65.21 Severe sepsis with septic shock; J96.01 Acute respiratory failure with hypoxia; I82.422 Acute embolism and thrombosis of left iliac vein; I82.412 Acute embolism and thrombosis of left femoral vein; G93.1 Anoxic brain damage, not elsewhere classified; I13.0 Hypertensive heart and chronic kidney disease with heart failure and stage 1 through stage 4 chronic kidney disease, or unspecified chronic kidney disease; I82.512 Chronic embolism and thrombosis of left femoral vein; I82.522 Chronic embolism and thrombosis of left iliac vein; I50.22 Chronic systolic (congestive) heart failure; N30.00 Acute cystitis without hematuria; Z16.23 Resistance to quinolones and fluoroquinolones; Z16.12 Extended spectrum beta lactamase (ESBL) resistance; D62 Acute posthemorrhagic anemia; E86.1 Hypovolemia; D63.1 Anemia in chronic kidney disease; F25.9 Schizoaffective disorder, unspecified; N18.3 Chronic kidney disease, stage 3 (moderate); B96.20 Unspecified Escherichia coli [E. coli] as the cause of diseases classified elsewhere; Z20.828 Contact with and (suspected) exposure to other viral communicable diseases; Z66 Do not resuscitate; M79.81 Nontraumatic hematoma of soft tissue; M62.89 Other specified disorders of muscle; T45.515A Adverse effect of anticoagulants, initial encounter; K52.9 Noninfective gastroenteritis and colitis, unspecified; K21.9 Gastro-esophageal reflux disease without esophagitis; F32.9 Major depressive disorder, single episode, unspecified; F41.9 Anxiety disorder, unspecified; M19.90 Unspecified osteoarthritis, unspecified site; E66.9 Obesity, unspecified; Z68.38 Body mass index [BMI] 38.0-38.9, adult; Z79.899 Other long term (current) drug therapy; Z98.891 History of uterine scar from previous surgery; W19.XXXA Unspecified fall, initial encounter
CPT/HCPCS: 36415; 70450; 71045; 71046; 71250; 74176; 78582; 80048; 80053; 81001; 82607; 82668; 82728; 82746; 82784; 82805; 83010; 83540; 83550; 83605; 83615; 83735; 83880; 83883; 83921; 84145; 84165; 84484; 85025; 85027; 85045; 85379; 85610; 85652; 85730; 86038; 86140; 86334; 86431; 86850; 86900; 86901; 86920; 87040; 87635; 93005; 93306; 93970; 94002; 96365; 96366; 96368; 96376; 99285

== ENCOUNTER 2019-11-27 18:52 | Inpatient (IN) | payer MEDICAID ==
[2019-11-27] MEDS ORDERED: MORPHINE SULFATE 2 MG/ML SYRINGE IV PRN (18:54)
[2019-11-27] MEDS ORDERED: ACETAMINOPHEN SUPPOSITORY 650 MG SUPP RECTAL PRN (18:54)
[2019-11-27] MEDS ORDERED: ONDANSETRON 4 MG/2 ML VIAL IVP PRN (18:54)
[2019-11-27] MEDS ORDERED: ATROPINE OPHTH SOLN 1% 5ML BTL SUBLINGUAL PRN (18:54)
[2019-11-27] MEDS ORDERED: MORPHINE SULFATE 2 MG/ML SYRINGE IVP ONE (18:54)
[2019-11-27] MEDS ORDERED: LORazepam 2 MG/ML INJ IV PRN (18:54)
[2019-11-27] MEDS ORDERED: LORazepam 2 MG/ML INJ ONE (19:00)
[2019-11-27] MEDS ORDERED: MORPHINE SULFATE (100 MG/2 ML) 100 MG in SODIUM CHLORIDE 0.9% 100 ML IV SCH (19:00)
[2019-11-27 22:19] VITALS: BP 0/0; PULSE 0; RESP 0
--- NOTE | 2019-12-04 01:37 | DS ---
DISCHARGE SUMMARY DATE OF ADMISSION: 11/27/2019 DATE PATIENT : 11/27/2019 CAUSE OF : Acute pulmonary embolism. HOSPITAL COURSE: Patient admitted to inpatient [facility] hospice care with comfort care measures. The patient succumbed to underlying condition. Patient . MMLILLYL / IJN: [id number] /
== END 2019-11-27 22:00 | disposition expired | DRG 951 ==
LOC: 2SICU 18:52
PROVIDERS: ADMIT Hospitalist; ATTEND Hospitalist
DX: Z51.5 Encounter for palliative care (principal); I26.99 Other pulmonary embolism without acute cor pulmonale; N17.9 Acute kidney failure, unspecified; I13.0 Hypertensive heart and chronic kidney disease with heart failure and stage 1 through stage 4 chronic kidney disease, or unspecified chronic kidney disease; I50.22 Chronic systolic (congestive) heart failure; I82.412 Acute embolism and thrombosis of left femoral vein; I82.422 Acute embolism and thrombosis of left iliac vein; N30.00 Acute cystitis without hematuria; Z66 Do not resuscitate; D63.1 Anemia in chronic kidney disease; F25.9 Schizoaffective disorder, unspecified; N18.3 Chronic kidney disease, stage 3 (moderate); K21.9 Gastro-esophageal reflux disease without esophagitis; F32.9 Major depressive disorder, single episode, unspecified; B96.20 Unspecified Escherichia coli [E. coli] as the cause of diseases classified elsewhere; K52.9 Noninfective gastroenteritis and colitis, unspecified; Z79.899 Other long term (current) drug therapy